=== PATIENT | male | born 1975 | race Caucasian/White ===

== ENCOUNTER 2017-02-14 15:54 | Observation (INO) | payer MEDICARE, OTHER ==
[2017-02-14] MEDS ORDERED: NITROGLYCERIN SL TABS 0.4 MG TAB SUBLINGUAL STA (16:14)
[2017-02-14] MEDS ORDERED: ASPIRIN 81 MG PO STA (16:14)
--- NOTE | 2017-02-14 16:17 | ED ---
General Adult HPI - General Chief complaint: Chest Pain Stated complaint: chest & abdominal pain/leg stiffness Time Seen by Provider: 02/14/17 16:03 Source: patient, RN notes reviewed Mode of arrival: ambulatory Limitations: no limitations - History of Present Illness Initial comments: Patient is a 41-year-old male who presents emergency room today with a chief complaint of chest pain that began approximately 2 hours ago. States he was just sitting relaxing when this started. He describes it as a sharp pain. It is worse with certain movements at times. Currently rates it a 9/10. States never had similar pain in the past. He denies any other associated symptoms or complaints. States he does not take any medications. Patient denies any recent fever, chills, shortness of breath, back pain, abdominal pain, nausea or vomiting, numbness or tingling, dysuria or hematuria, constipation or diarrhea, headaches or visual changes, or any other complaints. - Related Data Home Medications Medication Instructions Recorded Confirmed No Known Home Medications [No 02/14/17 02/14/17 Known Home Medications] Allergies Allergy/AdvReac Type Severity Reaction Status Date / Time No Known Allergies Allergy Verified 02/14/17 16:44 Review of Systems ROS Statement: Those systems with pertinent positive or pertinent negative responses have been documented in the HPI. ROS Other: All systems not noted in ROS Statement are negative. Past Medical History Past Medical History: Hypertension Additional Past Medical History / Comment(s): back pain History of Any Multi-Drug Resistant Organisms: None Reported Past Surgical History: No Surgical Hx Reported Past Psychological History: No Psychological Hx Reported Smoking Status: Never smoker Past Alcohol Use History: None Reported Past Drug Use History: None Reported General Exam - General Exam Comments Initial Comments: General: The patient is awake and alert, in no distress, and does not appear acutely ill. Eye: Pupils are equal, round and reactive to light, extra-ocular movements are intact. No nystagmus. There is normal conjunctiva bilaterally. No signs of icterus. Ears, nose, mouth and throat: There are moist mucous membranes and no oral lesions. Neck: The neck is supple, there is no tenderness or JVD. Cardiovascular: There is a regular rate and rhythm. No murmur, rub or gallop is appreciated. Respiratory: Lungs are clear to auscultation, respirations are non-labored, breath sounds are equal. No wheezes, stridor, rales, or rhonchi. Gastrointestinal: Soft, non-distended, non-tender abdomen without masses or organomegaly noted. There is no rebound or guarding present. No CVA tenderness. Bowel sounds are unremarkable. Musculoskeletal: Normal ROM, no tenderness. Strength 5/5. Sensation intact. Pulses equal bilaterally 2+. Neurological: A&O x 3. CN II-XII intact, There are no obvious motor or sensory deficits. Coordination appears grossly intact. Speech is normal. Skin: Skin is warm and dry and no rashes or lesions are noted. Psychiatric: Cooperative, appropriate mood & affect, normal judgment. Limitations: no limitations Course Vital Signs 02/14/17 02/14/17 02/14/17 15:58 16:51 16:58 Temperature 97.0 F L Pulse Rate 61 62 67 Respiratory 18 16 16 Rate Blood Pressure 138/75 138/81 126/69 O2 Sat by Pulse 99 97 97 Oximetry 02/14/17 17:58 Temperature Pulse Rate 58 L Respiratory 14 Rate Blood Pressure 114/73 O2 Sat by Pulse 99 Oximetry EKG Findings - EKG Comments: EKG Findings:: EKG performed at 1606: A 12-lead EKG was performed and interpreted by me as showing the following: Rate is 53, and rhythm is normal sinus. There are normal QRS complexes and normal R-wave progression. ST segments have no elevation or depression, and DC segments appear normal. Medical Decision Making - Medical Decision Making Case discussed in detail with attending physician Dr. Vega. Patient reexamined at this time shows no signs of distress resting comfortably. Patient mitts that on Nitro-Tab did relieve HIS pain. He is currently pain- free at this time. Denies any other symptoms. He does not that symptoms started 2 hours prior to arrival. Patient will be admitted for serial enzymes. Patient family aware of the plan. - Lab Data Result diagrams: 02/14/17 16:50 02/14/17 16:50 Lab Results 02/14/17 02/14/17 02/14/17 Range/Units 16:50 16:50 16:50 WBC 5.9 (3.8-10.6) k/uL RBC 5.13 (4.30-5.90) m/uL Hgb 16.1 (13.0-17.5) gm/dL Hct 45.2 (39.0-53.0) % MCV 88.1 (80.0-100.0) fL MCH 31.4 (25.0-35.0) pg MCHC 35.6 (31.0-37.0) g/dL RDW 12.5 (11.5-15.5) % Plt Count 202 (150-450) k/uL Neutrophils % 53 % Lymphocytes % 33 % Monocytes % 8 % Eosinophils % 3 % Basophils % 1 % Neutrophils # 3.2 (1.3-7.7) k/uL Lymphocytes # 2.0 (1.0-4.8) k/uL Monocytes # 0.5 (0-1.0) k/uL Eosinophils # 0.2 (0-0.7) k/uL Basophils # 0.0 (0-0.2) k/uL PT (9.0-12.0) sec INR (<1.2) APTT (22.0-30.0) sec Sodium 138 (137-145) mmol/L Potassium 4.8 (3.5-5.1) mmol/L Chloride 104 (98-107) mmol/L Carbon Dioxide 24 (22-30) mmol/L Anion Gap 10 mmol/L BUN 9 (9-20) mg/dL Creatinine 0.90 (0.66-1.25) mg/dL Est GFR (MDRD) Af Amer >60 (>60 ml/min/1.73 sqM) Est GFR (MDRD) Non-Af >60 (>60 ml/min/1.73 sqM) Glucose 94 (74-99) mg/dL Calcium 9.8 (8.4-10.2) mg/dL Magnesium 2.0 (1.6-2.3) mg/dL Total Bilirubin 1.0 (0.2-1.3) mg/dL AST 56 (17-59) U/L ALT 96 H (21-72) U/L Alkaline Phosphatase 77 (38-126) U/L Total Creatine Kinase 53 L (55-170) U/L CK-MB (CK-2) <0.2 (0.0-2.4) ng/mL CK-MB (CK-2) Rel Index Troponin I <0.012 (0.000-0.034) ng/mL Total Protein 7.4 (6.3-8.2) g/dL Albumin 4.4 (3.5-5.0) g/dL 02/14/17 Range/Units 16:50 WBC (3.8-10.6) k/uL RBC (4.30-5.90) m/uL Hgb (13.0-17.5) gm/dL Hct (39.0-53.0) % MCV (80.0-100.0) fL MCH (25.0-35.0) pg MCHC (31.0-37.0) g/dL RDW (11.5-15.5) % Plt Count (150-450) k/uL Neutrophils % % Lymphocytes % % Monocytes % % Eosinophils % % Basophils % % Neutrophils # (1.3-7.7) k/uL Lymphocytes # (1.0-4.8) k/uL Monocytes # (0-1.0) k/uL Eosinophils # (0-0.7) k/uL Basophils # (0-0.2) k/uL PT 10.7 (9.0-12.0) sec INR 1.1 (<1.2) APTT 23.4 (22.0-30.0) sec Sodium (137-145) mmol/L Potassium (3.5-5.1) mmol/L Chloride (98-107) mmol/L Carbon Dioxide (22-30) mmol/L Anion Gap mmol/L BUN (9-20) mg/dL Creatinine (0.66-1.25) mg/dL Est GFR (MDRD) Af Amer (>60 ml/min/1.73 sqM) Est GFR (MDRD) Non-Af (>60 ml/min/1.73 sqM) Glucose (74-99) mg/dL Calcium (8.4-10.2) mg/dL Magnesium (1.6-2.3) mg/dL Total Bilirubin (0.2-1.3) mg/dL AST (17-59) U/L ALT (21-72) U/L Alkaline Phosphatase (38-126) U/L Total Creatine Kinase (55-170) U/L CK-MB (CK-2) (0.0-2.4) ng/mL CK-MB (CK-2) Rel Index Troponin I (0.000-0.034) ng/mL Total Protein (6.3-8.2) g/dL Albumin (3.5-5.0) g/dL Disposition Clinical Impression: Chest pain Disposition: ADMITTED IP TO THIS HOSP Condition: Stable Referrals: None,Stated [Primary Care Provider] - 1-2 days Time of Disposition: 18:13
[2017-02-14 17:11] LABS: Basophils % (A) 1 %; CH 30.9; CHCM 35.2; Eosinophils # (A) 0.2 k/uL (0-0.7); Eosinophils % (A) 3 %; HCT 45.2 % (39.0-53.0); HDW 2.66; HGB 16.1 gm/dL (13.0-17.5); Luc # (Auto) 0.12; Luc % (Auto) 2; Lymphocytes % (A) 33 %; MCH 31.4 pg (25.0-35.0); MCHC 35.6 g/dL (31.0-37.0); MCV 88.1 fL (80.0-100.0); Mean Platelet Volume 7.8; Monocytes # (A) 0.5 k/uL (0-1.0); Monocytes % (A) 8 %; Neutrophils # (A) 3.2 k/uL (1.3-7.7); Neutrophils % (A) 53 %; RBC 5.13 m/uL (4.30-5.90); RDW 12.5 % (11.5-15.5); WBC 5.9 k/uL (3.8-10.6); WBC (Perox) 5.86
--- NOTE | 2017-02-14 17:15 | XR ---
EXAMINATION TYPE: XR chest 2V DATE OF EXAM: 02/14/2017 COMPARISON: 11/30/2015 HISTORY: Chest pain TECHNIQUE: Frontal and lateral views of the chest are obtained. FINDINGS: Heart and mediastinum are normal. Lungs are clear. Diaphragm is normal. Bony thorax is int act. There are chest leads. IMPRESSION: Normal chest. No change.
[2017-02-14 17:22] LABS: ALT 96 U/L (21-72); AST 56 U/L (17-59); Alkaline Phosphatase 77 U/L (38-126); Anion Gap 10 mmol/L; Blood Urea Nitrogen 9 mg/dL (9-20); Calcium 9.8 mg/dL (8.4-10.2); Carbon Dioxide 24 mmol/L (22-30); Chloride 104 mmol/L (98-107); Glucose 94 mg/dL (74-99); Non-African American GFR(MDRD) >60 (>60 ml/min/1.73 sqM); Potassium 4.8 mmol/L (3.5-5.1); Sodium 138 mmol/L (137-145); Total Protein 7.4 g/dL (6.3-8.2)
[2017-02-14 17:32] LABS: Creatine Kinase 53 U/L (55-170)
[2017-02-14 17:45] LABS: Creatine Kinase MB <0.2 ng/mL (0.0-2.4); Troponin I <0.012 ng/mL (0.000-0.034)
[2017-02-14 17:53] LABS: Partial Thromboplastin Time 23.4 sec (22.0-30.0)
[2017-02-14 18:06] LABS: INR 1.1 (<1.2); Prothrombin Time 10.7 sec (9.0-12.0)
[2017-02-14] MEDS ORDERED: HEPARIN SODIUM,PORCINE 5,000 UNIT/ML 1 ML VIAL IV ONE (18:13)
[2017-02-14] MEDS ORDERED: SODIUM CHLORIDE 0.9% 1,000 ML IV ONE (18:13)
[2017-02-14] MEDS ORDERED: NITROGLYCERIN SL TABS 0.4 MG TAB SUBLINGUAL PRN (18:13)
[2017-02-14] MEDS ORDERED: HEPARIN SODIUM,PORCINE/D5W PMX 25,000 UNIT in DEXTROSE/WATER 1 500ML.BAG IV SCH (18:15)
--- NOTE | 2017-02-14 18:53 | P.HPIM ---
History of Present Illness H&P Date: 02/14/17 Chief Complaint: chest pain Patient is a 41-year-old male with a past medical history of hypertension and back pain who presented with complaints of right-sided chest pain. He states that he ate some eggs and sausage this morning. A few hours later he started having right-sided stabbing chest pain that radiated to his left. It was not associated with shortness of breath, nausea, vomiting, lightheadedness, presyncope, palpitations, or diaphoresis. He states it lasted more than one hour. He states that it was relieved with nitro. He still is having some right and left shoulder pain that is worse with movement and better with rest. He did not try anything at home to relieve the pain prior to presenting to the emergency department. He denies any history of coronary artery disease. He states he had similar pain when he was told he had rib fractures approximately one year ago. He does have a family history of heart disease with his mom passing away of this at age 73. He has a history of hypertension but was taken off of his medications by his doctor his blood pressures had been normal. He denies any history of smoking and does not take a daily aspirin. He states that he had a stress test was approximately 6-7 years ago. He denies any unusual activities at home. In the emergency department he underwent an extensive evaluation. His vital signs are found to be within normal limits. Initial troponin and blood was negative. EKG showed sinus bradycardia at a rate of 53 with normal axis and normal intervals. He will be admitted as observation for her second set of troponins and cardiology evaluation. Review of Systems General: no fever/chills, no rigors, no weight loss/weight gain, no change in appetite Eyes: No double vision, no unusual blurry vision, no loss of vision ENT: No rhinorrhea, congestion, no trush Cardiovascular: + Chest pain, no palpitations, no syncope, no edema, No paroxysmal nocturnal dyspnea, No dizziness Pulmonary: No shortness of breath, no wheezing, no cough, hemoptysis Abdominal: No abdominal pain, no constipation, no diarrhea, no vomiting, no nausea, no distention Genitourinary: No dysuria, no urinary frequency, no hematuria, no unusual discharge/odor Neuro: No unusual paresthesias, no unusual paresis/paralysis, no headache Dermatologic: No unusual rashes, no unusual lesions, no unusual changes in nails Endocrinology: No intolerance to heat/cold, no excessive thirst, no unusual fatigue Hematologic: No unusual bruising or bleeding, no unusual cervical lymphadenopathy Psychiatric: No changes in mood or behaviors, no changes in sleep pattern Past Medical History Past Medical History: Hypertension Additional Past Medical History / Comment(s): back pain History of Any Multi-Drug Resistant Organisms: None Reported Past Surgical History: No Surgical Hx Reported Past Psychological History: No Psychological Hx Reported Smoking Status: Never smoker Past Alcohol Use History: None Reported Past Drug Use History: None Reported - Past Family History Mother Family Medical History: Coronary Artery Disease (CAD) Father Family Medical History: Diabetes Mellitus Medications and Allergies Home Medications Medication Instructions Recorded Confirmed Type No Known Home Medications [No 02/14/17 02/14/17 History Known Home Medications] Allergies Allergy/AdvReac Type Severity Reaction Status Date / Time No Known Allergies Allergy Verified 02/14/17 16:44 Physical Exam Osteopathic Statement: *. No significant issues noted on an osteopathic structural exam other than those noted in the History and Physical/Consult. Vitals: Vital Signs Temp Pulse Resp BP Pulse Ox 02/14/17 18:39 97.9 F 53 L 16 126/84 99 02/14/17 17:58 58 L 14 114/73 99 02/14/17 16:58 67 16 126/69 97 02/14/17 16:51 62 16 138/81 97 02/14/17 15:58 97.0 F L 61 18 138/75 99 Intake and Output 02/14/17 02/14/17 02/14/17 06:59 14:59 22:59 Other: Weight 81.647 kg Patient Weight 02/15/17 06:59 Weight 81.647 kg General: non toxic, no distress, appears at stated age, normal weight Derm: no rashes, no lesions, no ulcers, no unusual ecchymoses Head: atraumatic, normocephalic, symmetric Eyes: EOMI, no lid lag, anicteric sclera, pupils equal round reactive to light ENT: no post nasal drip, no thrush , nearest patent, no pharyngeal erythema Neck: No thyromegaly, no cervical lymphadenopathy, trachea midline, supple Mouth: no lip lesion, mucus membranes moist Cardiovascular: Chest pain not reproducible, S1S2 reg, no murmur, positive posterior tibial pulse bilateral, no edema , no JVD, no clubbing, no cyanosis, capillary refill less than 2 seconds Lungs: CTA bilateral, no rhonchi, no rales , no accessory muscle use Abdominal: soft, nontender to palpation, no guarding, no appreciable organomegaly, normal bowel sounds Ext: no gross muscle atrophy, muscle strength 5 out of 5 in all 4 extremities grossly, no contractures, Neuro: CN II-XI grossly intact, light touch intact all 4 extremities, finger to nose within normal limits, Psych: Alert, oriented, appropriate affect Results CBC & Chem 7: 02/14/17 16:50 02/14/17 16:50 Labs: Abnormal Lab Results - Last 24 Hours (Table) 02/14/17 02/14/17 Range/Units 16:50 16:50 ALT 96 H (21-72) U/L Total Creatine Kinase 53 L (55-170) U/L Chest x-ray: report reviewed, image reviewed Thrombosis Risk Factor Assmnt - DVT/VTE Prophylaxis DVT/VTE Prophylaxis: Low risk, early ambulation encouraged Assessment and Plan Plan: #Chest pain -Aspirin -Repeat second troponin -Telemetry -Cardiology consult -Continue her score is year-old patient can likely have an outpatient stress test next week if cardiology is in agreement. #Hypertension -Patient not currently on any antihypertensive treatment secondary to be taken off by his PCP, continue with blood pressure monitoring Surrogate decision-maker: Brothclaudy Polk CODE STATUS: Full DVT prophylaxis: Ambulation Discussed with: Patient, ER physician, ER nurse, Floor nurse Anticipated discharge: [address]: Home A total of 45 minutes was spent on the care of this complex patient more than 50 % of the time was spent in counseling and care coordination.
[2017-02-14 19:48] VITALS: BMI 24.2
[2017-02-14 23:27] LABS: Creatine Kinase 57 U/L (55-170)
[2017-02-14 23:41] LABS: Creatine Kinase MB <0.2 ng/mL (0.0-2.4); Troponin I <0.012 ng/mL (0.000-0.034)
[2017-02-15] MEDS ORDERED: ACETAMINOPHEN TAB 325 MG TAB PO PRN (03:58)
[2017-02-15 05:57] LABS: Cholesterol 206 mg/dL (<200); Creatine Kinase 60 U/L (55-170); HDL Cholesterol 49 mg/dL (40-60)
[2017-02-15 06:10] LABS: Creatine Kinase MB <0.2 ng/mL (0.0-2.4); Troponin I <0.012 ng/mL (0.000-0.034)
[2017-02-15 08:15] VITALS: BP 109/66; PULSE 52; RESP 15; TEMP 97.6
--- NOTE | 2017-02-15 08:36 | US ---
EXAMINATION TYPE: US liver DATE OF EXAM: 02/15/2017 COMPARISON: NONE CLINICAL HISTORY: RUQ pain, elevated liver enzymes. EXAM MEASUREMENTS: Liver Length: 16.1 cm Gallbladder Wall: 0.2 cm CBD: 0.5 cm Right Kidney: 12.1 x 3.8 x 5.0 cm Limited due to bowel gas and position of liver high under ribs. Pancreas: Obscured by bowel gas, parts visualized appear wnl Liver: Obscured by overlying bowel gas, parts visualized appear wnl Gallbladder: appear wnl Evidence for sonographic Madden's sign: No CBD: appears prominent Right Kidney: appear wnl The pancreas is poorly visualized. The liver is normal in size without biliary dilatation. The gallbladder is normal without evidence of cholelithiasis. The gallbladder wall measures 2 mm. The distal common hepatic duct measures 5 mm. The right kidney is normal. IMPRESSION: NORMAL RIGHT UPPER QUADRANT ULTRASOUND.
--- NOTE | 2017-02-15 08:48 | P.CRDCN ---
History of Present Illness Consult date: 02/15/17 Chief complaint: Chest pain History of present illness: This is a pleasant 41-year-old gentleman with past medical history significant for hypertension and significant family history of coronary artery disease presented to the hospital complaining of chest discomfort. He describes chest discomfort over the right side of the chest as a sharp kind of discomfort without any radiation to the arm or neck or shoulders and without any associated symptoms of shortness of breath, sweating, dizziness or lightheadedness or syncope. The cardiac workup came in to be unremarkable including EKG as well as cardiac enzymes. The chest x-ray came in to be unremarkable. He underwent also an ultrasound of the abdomen and that came in to be unremarkable as well. Past Medical History Past Medical History: Hypertension Additional Past Medical History / Comment(s): back pain History of Any Multi-Drug Resistant Organisms: None Reported Past Surgical History: No Surgical Hx Reported Past Anesthesia/Blood Transfusion Reactions: No Reported Reaction Past Psychological History: No Psychological Hx Reported Smoking Status: Never smoker Past Alcohol Use History: None Reported Past Drug Use History: None Reported - Past Family History Mother Family Medical History: Coronary Artery Disease (CAD) Father Family Medical History: Diabetes Mellitus Medications and Allergies Home Medications Medication Instructions Recorded Confirmed Type No Known Home Medications [No 02/14/17 02/14/17 History Known Home Medications] Allergies Allergy/AdvReac Type Severity Reaction Status Date / Time No Known Allergies Allergy Verified 02/14/17 19:48 Physical Exam Vitals: Vital Signs Temp Pulse Pulse Resp BP BP Pulse Ox 02/15/17 08:00 97.6 F 52 L 15 109/66 97 02/15/17 04:00 97.7 F 54 L 18 131/75 98 02/14/17 23:49 56 L 18 02/14/17 22:47 58 L 18 140/72 98 02/14/17 20:00 18 02/14/17 19:04 98.1 F 54 L 18 144/73 100 02/14/17 18:39 97.9 F 53 L 16 126/84 99 02/14/17 17:58 58 L 14 114/73 99 02/14/17 16:58 67 16 126/69 97 02/14/17 16:51 62 16 138/81 97 02/14/17 15:58 97.0 F L 61 18 138/75 99 Intake and Output 02/14/17 02/15/17 02/15/17 22:59 06:59 14:59 Intake Total 860 470 Balance 860 470 Intake: IV 80 160 Heparin Sodium,Porcine/ 80 160 D5w Pmx 25,000 unit In Dextrose/Water 1 500ml. bag @ 12 UNITS/KG/HR 19. 59 mls/hr IV .Q24H [facility] Rx #:[id number] Intake, IV Titration 80 160 Amount Sodium Chloride 0.9% 1, 80 160 000 ml @ 20 mls/hr IV . Q24H ONE Rx#:[id number] Oral 700 150 Other: Voiding Method Toilet Toilet Toilet # Voids 2 2 Weight 90.2 kg - Constitutional General appearance: no acute distress - Respiratory Respiratory: bilateral: CTA - Cardiovascular Rhythm: regular Heart sounds: normal: S1, S2 Results 02/14/17 16:50 02/14/17 16:50 Cardiac Enzymes 02/14/17 02/14/17 02/14/17 Range/Units 16:50 16:50 22:47 AST 56 (17-59) U/L CK-MB (CK-2) <0.2 <0.2 (0.0-2.4) ng/mL Troponin I <0.012 <0.012 (0.000-0.034) ng/mL 02/15/17 Range/Units 04:59 AST (17-59) U/L CK-MB (CK-2) <0.2 (0.0-2.4) ng/mL Troponin I <0.012 (0.000-0.034) ng/mL Coagulation 02/14/17 02/15/17 Range/Units 16:50 04:59 PT 10.7 (9.0-12.0) sec APTT 23.4 32.3 H (22.0-30.0) sec Lipids 02/15/17 Range/Units 04:59 Triglycerides 121 (<150) mg/dL Cholesterol 206 H (<200) mg/dL HDL Cholesterol 49 (40-60) mg/dL CBC 02/14/17 Range/Units 16:50 WBC 5.9 (3.8-10.6) k/uL RBC 5.13 (4.30-5.90) m/uL Hgb 16.1 (13.0-17.5) gm/dL Hct 45.2 (39.0-53.0) % Plt Count 202 (150-450) k/uL Comprehensive Metabolic Panel 02/14/17 Range/Units 16:50 Sodium 138 (137-145) mmol/L Potassium 4.8 (3.5-5.1) mmol/L Chloride 104 (98-107) mmol/L Carbon Dioxide 24 (22-30) mmol/L BUN 9 (9-20) mg/dL Creatinine 0.90 (0.66-1.25) mg/dL Glucose 94 (74-99) mg/dL Calcium 9.8 (8.4-10.2) mg/dL AST 56 (17-59) U/L ALT 96 H (21-72) U/L Alkaline Phosphatase 77 (38-126) U/L Total Protein 7.4 (6.3-8.2) g/dL Albumin 4.4 (3.5-5.0) g/dL Current Medications Generic Name Dose Route Start Last Admin Trade Name Freq PRN Reason Stop Dose Admin Acetaminophen 650 mg 02/15/17 03:58 02/15/17 04:21 Tylenol Tab PO 650 mg Q6HR PRN Administration Fever and/ or Pain Aspirin 325 mg 02/15/17 09:00 Aspirin PO DAILY [facility] Sodium Chloride 1,000 mls @ 20 mls/hr 02/14/17 18:13 02/14/17 18:33 Saline 0.9% IV 02/15/17 18:12 20 mls/hr .Q24H ONE Administration Nitroglycerin 0.4 mg 02/14/17 18:13 Nitrostat SUBLINGUAL Q5M PRN Chest Pain Intake and Output 02/14/17 02/15/17 02/15/17 22:59 06:59 14:59 Intake Total 860 470 Balance 860 470 Intake: IV 80 160 Heparin Sodium,Porcine/ 80 160 D5w Pmx 25,000 unit In Dextrose/Water 1 500ml. bag @ 12 UNITS/KG/HR 19. 59 mls/hr IV .Q24H [facility] Rx #:[id number] Intake, IV Titration 80 160 Amount Sodium Chloride 0.9% 1, 80 160 000 ml @ 20 mls/hr IV . Q24H ONE Rx#:[id number] Oral 700 150 Other: Voiding Method Toilet Toilet Toilet # Voids 2 2 Weight 90.2 kg 02/14/17 16:50 02/14/17 16:50 Assessment and Plan Plan: This is a pleasant 41-year-old gentleman with hypertension and family history of CAD presented to the hospital was atypical chest discomfort and was ruled out for acute coronary event. I had a long discussion with him and I recommended proceeding with a stress test. Unfortunately we don't to stress test over the weekend. I recommended the patient to get up and around and if he is asymptomatic and pain-free he might be able to be discharged home and have the stress test done as an outpatient.
[2017-02-15] MEDS ORDERED: ASPIRIN 325 MG TAB PO SCH (09:00)
--- NOTE | 2017-02-15 10:30 | P.DS ---
Providers Date of admission: 02/14/17 18:12 Expected date of discharge: 02/15/17 Attending physician: Diane Vargas DO Consults: 02/14/17 18:13 Consult Physician Stat Consulting Provider: [facility] Consult Reason/Comments: chest pain Do you want consulting provider notified?: Yes Primary care physician: Stated None - Discharge Diagnosis(es) (1) Dyslipidemia Status: Acute (2) Hypertension Status: Acute (3) Chest pain Status: Acute Hospital Course: Patient is a 41-year-old male with a past medical history of hypertension and back pain who presented with complaints of right-sided chest pain. Pain began after eating meals aches sausage. It was worse with lying flat and moving his right shoulder. In the emergency department he underwent an extensive evaluation. His vital signs were found to be within normal limits. Initial troponin and blood was negative. EKG showed sinus bradycardia at a rate of 53 with normal axis and normal intervals. He was admitted as observation for further monitoring. His repeat troponins were negative. His telemetry was unremarkable. Evaluation did show elevated cholesterol levels. He was seen by cardiology and was determined appropriate for outpatient stress test. He was not having any chest pain when up and ambulating but was having some pain with movement of his right shoulder. He was determined stable for discharge. He also had an abdominal ultrasound completed during his hospitalization to rule out gallstones. He assures me that he will follow up with his primary care provider next week. His chest pain was felt to most likely musculoskeletal versus GERD related. He was started on a PPI daily. He will take Motrin 3 times a day for the next 3 days to see if that relieves his pain. He will follow-up with his primary care physician. He is also started on statin therapy secondary to dyslipidemia. He does have a history of hypertension but was taken off of his medications. His blood pressures remained controlled during hospitalization and there was no indication to restart antihypertensive therapy. Patient seen and examined at bedside. Has right-sided chest pain when laying flat and moving right arm. Was able to ambulate without shortness of breath or chest pain. No other complaints at this time. Wishes to be discharged home for outpatient stress test. He understands the importance of receiving this stress test with his family history of heart disease Vital signs reviewed and stable. General: non toxic, no distress, appears at stated age Derm: no rashes, no lesions Head: atraumatic, normocephalic, symmetric Eyes: EOMI, no lid lag, anicteric sclera ENT: no post nasal drip, no thrush Mouth: no lip lesion, mucus membranes moist Cardiovascular: S1S2 reg, no murmur, positive posterior tibial pulse bilateral, Lungs: CTA bilateral, no rhonchi, no rales , no accessory muscle use Abdominal: soft, nontender to palpation, no guarding, no appreciable organomegaly Ext: no gross muscle atrophy, no edema, no contractures Neuro: CN II-XI grossly intact, no focal neuro deficits Psych: Alert, oriented, appropriate affect A total of 25 minutes of time were spent preparing this complex discharge summary . Pertinent Studies: Liver ultrasound-negative Patient Condition at Discharge: Stable Plan - Discharge Summary New Discharge Prescriptions: New Atorvastatin [Lipitor] 40 mg PO HS #30 tablet Dexlansoprazole [Dexilant] 30 mg PO DAILY #30 cap. Discharge Medication List Atorvastatin [Lipitor] 40 mg PO HS #30 tablet 02/15/17 [Rx] Dexlansoprazole [Dexilant] 30 mg PO DAILY #30 cap. 02/15/17 [Rx] Follow up Appointment(s)/Referral(s): Jos éMiguel Vega MD [STAFF PHYSICIAN] - 2 Weeks None,Stated [Primary Care Provider] - 1-2 days Activity/Diet/Wound Care/Special Instructions: Heart healthy diet, activity as tolerated Please take your Mortin 3 times daily for the next 3 days and then as needed after that. You are also going home with a trial of a medication for heart burn. Please follow-up with your family doctor to see if this is effective for your pain. Discharge Disposition: HOME SELF-CARE
== END 2017-02-15 11:12 | disposition home or self-care (01) ==
LOC: EC 15:54 → 3OBS 18:12
PROVIDERS: ADMIT Internal Medicine; ATTEND Internal Medicine
DX: R07.89 Other chest pain (principal); R10.9 Unspecified abdominal pain; I10 Essential (primary) hypertension; R00.1 Bradycardia, unspecified; M54.9 Dorsalgia, unspecified; E78.5 Hyperlipidemia, unspecified; Z82.49 Family history of ischemic heart disease and other diseases of the circulatory system
CPT/HCPCS: 96374; 99285; 36415; 93005; 80061; 80053; 82550 ×2; 82553 ×2; 83735; 84484 ×2; 85025; 85610; 85730 ×2; 71020; 76705; G0378 ×2; J1644 ×2

== ENCOUNTER 2017-06-27 14:01 | Emergency (ER) | payer MEDICARE, OTHER ==
--- NOTE | 2017-06-27 14:23 | ED ---
General Adult HPI - General Chief complaint: Abdominal Pain Stated complaint: Abd pain Time Seen by Provider: 06/27/17 14:17 Source: patient, RN notes reviewed Mode of arrival: ambulatory Limitations: no limitations - History of Present Illness Initial comments: Patient 42-year-old male who presents emergency room today with chief complaint of lower abdominal pain over the last 5 days. He does admit to some discomfort to the lower abdomen. He states that it's been present for 5 days on family doctor yesterday was advised to come to the emergency room. Patient does admit that he felt a little constipated this morning having a difficult time going the bathroom. Patient does admit that pain is improved when he is sitting up or swelling is laying flat. Patient denies anything which associated symptoms. Patient denies any recent fever, chills, shortness of breath, chest pain, back pain, nausea or vomiting, numbness or tingling, dysuria or hematuria, diarrhea, headaches or visual changes, or any other complaints. - Related Data Home Medications Medication Instructions Recorded Confirmed No Known Home Medications [No 06/27/17 06/27/17 Known Home Medications] Allergies Allergy/AdvReac Type Severity Reaction Status Date / Time No Known Allergies Allergy Verified 06/27/17 14:19 Review of Systems ROS Statement: Those systems with pertinent positive or pertinent negative responses have been documented in the HPI. ROS Other: All systems not noted in ROS Statement are negative. Past Medical History Past Medical History: Hypertension Additional Past Medical History / Comment(s): back pain History of Any Multi-Drug Resistant Organisms: None Reported Past Surgical History: No Surgical Hx Reported Past Anesthesia/Blood Transfusion Reactions: No Reported Reaction Past Psychological History: No Psychological Hx Reported Smoking Status: Never smoker Past Alcohol Use History: None Reported Past Drug Use History: None Reported - Past Family History Mother Family Medical History: Coronary Artery Disease (CAD) Father Family Medical History: Diabetes Mellitus General Exam - General Exam Comments Initial Comments: General: The patient is awake and alert, in no distress, and does not appear acutely ill. Eye: Pupils are equal, round and reactive to light, extra-ocular movements are intact. No nystagmus. There is normal conjunctiva bilaterally. No signs of icterus. Ears, nose, mouth and throat: There are moist mucous membranes and no oral lesions. Neck: The neck is supple, there is no tenderness or JVD. Cardiovascular: There is a regular rate and rhythm. No murmur, rub or gallop is appreciated. Respiratory: Lungs are clear to auscultation, respirations are non-labored, breath sounds are equal. No wheezes, stridor, rales, or rhonchi. Gastrointestinal: Normal. His abdomen. Normal bowel sounds. Abdomen soft on palpation. Patient does have mild tenderness both on the left and right lower quadrants. No rebound, or guarding. No CVA tenderness. Musculoskeletal: Normal ROM, no tenderness. Strength 5/5. Sensation intact. Pulses equal bilaterally 2+. Neurological: A&O x 3. CN II-XII intact, There are no obvious motor or sensory deficits. Coordination appears grossly intact. Speech is normal. Skin: Skin is warm and dry and no rashes or lesions are noted. Psychiatric: Cooperative, appropriate mood & affect, normal judgment. Limitations: no limitations Course Vital Signs 06/27/17 14:04 Temperature 97 F L Pulse Rate 61 Respiratory 15 Rate Blood Pressure 129/85 O2 Sat by Pulse 98 Oximetry Medical Decision Making - Medical Decision Making Patient's labs reviewed negative for any acute abnormality. Patient's CT shows moderate stool. No sign of obstruction. No other sign of inflammation or infection. Results were discussed with patient. Patient will given magnesium citrate here in the emergency room. Patient advised to increase oral fluids following up with family doctor return to emergency room symptoms increase or worsen. - Lab Data Result diagrams: 06/27/17 14:35 06/27/17 14:35 Lab Results 06/27/17 06/27/17 06/27/17 Range/Units 14:35 14:35 14:35 WBC 6.5 (3.8-10.6) k/uL RBC 5.43 (4.30-5.90) m/uL Hgb 16.7 (13.0-17.5) gm/dL Hct 48.5 (39.0-53.0) % MCV 89.4 (80.0-100.0) fL MCH 30.8 (25.0-35.0) pg MCHC 34.4 (31.0-37.0) g/dL RDW 14.0 (11.5-15.5) % Plt Count 209 (150-450) k/uL Neutrophils % 59 % Lymphocytes % 32 % Monocytes % 5 % Eosinophils % 3 % Basophils % 1 % Neutrophils # 3.8 (1.3-7.7) k/uL Lymphocytes # 2.0 (1.0-4.8) k/uL Monocytes # 0.3 (0-1.0) k/uL Eosinophils # 0.2 (0-0.7) k/uL Basophils # 0.0 (0-0.2) k/uL Sodium 141 (137-145) mmol/L Potassium 4.2 (3.5-5.1) mmol/L Chloride 104 (98-107) mmol/L Carbon Dioxide 26 (22-30) mmol/L Anion Gap 11 mmol/L BUN 10 (9-20) mg/dL Creatinine 0.90 (0.66-1.25) mg/dL Est GFR (MDRD) Af Amer >60 (>60 ml/min/1.73 sqM) Est GFR (MDRD) Non-Af >60 (>60 ml/min/1.73 sqM) Glucose 94 (74-99) mg/dL Calcium 9.3 (8.4-10.2) mg/dL Total Bilirubin 0.8 (0.2-1.3) mg/dL AST 30 (17-59) U/L ALT 45 (21-72) U/L Alkaline Phosphatase 67 (38-126) U/L Total Protein 6.7 (6.3-8.2) g/dL Albumin 4.0 (3.5-5.0) g/dL Amylase 36 (30-110) U/L Lipase 80 (23-300) U/L Urine Color Light Yellow Urine Appearance Clear (Clear) Urine pH 7.0 (5.0-8.0) Ur Specific [place] 1.003 (1.001-1.035) Urine Protein Negative (Negative) Urine Glucose (UA) Negative (Negative) Urine Ketones Negative (Negative) Urine Blood Negative (Negative) Urine Nitrite Negative (Negative) Urine Bilirubin Negative (Negative) Urine Urobilinogen <2.0 (<2.0) mg/dL Ur Leukocyte Esterase Negative (Negative) Disposition Clinical Impression: Abdominal pain Disposition: HOME SELF-CARE Instructions: Abdominal Pain (ED) Additional Instructions: Please use magnesium citrate in the entire bottle with a large glass of water when you get home. Please follow-up the family doctor over the next 2 days if symptoms are not improving or return here to the emergency room if any symptoms increase or worsen or for any other concerns. Referrals: Keith Mata MD [Primary Care Provider] - 1-2 days Time of Disposition: 17:33
[2017-06-27 14:54] LABS: Basophils % (A) 1 %; Eosinophils # (A) 0.2 k/uL (0-0.7); Eosinophils % (A) 3 %; HCT 48.5 % (39.0-53.0); HGB 16.7 gm/dL (13.0-17.5); Lymphocytes % (A) 32 %; MCH 30.8 pg (25.0-35.0); MCHC 34.4 g/dL (31.0-37.0); MCV 89.4 fL (80.0-100.0); Mean Platelet Volume 7.9; Monocytes # (A) 0.3 k/uL (0-1.0); Monocytes % (A) 5 %; Neutrophils # (A) 3.8 k/uL (1.3-7.7); Neutrophils % (A) 59 %; Platelet Count 209 k/uL (150-450); RBC 5.43 m/uL (4.30-5.90); WBC 6.5 k/uL (3.8-10.6)
[2017-06-27 14:57] LABS: Appearance,Urine Clear (Clear); Bilirubin,Urine Negative (Negative); Blood,Urine Negative (Negative); Color,Urine Light Yellow; Glucose,Urine (UA) Negative (Negative); Ketones,Urine Negative (Negative); Leukocyte Esterase,Urine Negative (Negative); Nitrite,Urine Negative (Negative); Protein,Urine Negative (Negative); Specific Gravity,Urine 1.003 (1.001-1.035); Urobilinogen,Urine <2.0 mg/dL (<2.0)
[2017-06-27 15:05] LABS: ALT 45 U/L (21-72); AST 30 U/L (17-59); Alkaline Phosphatase 67 U/L (38-126); Amylase 36 U/L (30-110); Anion Gap 11 mmol/L; Blood Urea Nitrogen 10 mg/dL (9-20); Calcium 9.3 mg/dL (8.4-10.2); Carbon Dioxide 26 mmol/L (22-30); Chloride 104 mmol/L (98-107); Glucose 94 mg/dL (74-99); Lipase 80 U/L (23-300); Potassium 4.2 mmol/L (3.5-5.1); Sodium 141 mmol/L (137-145); Total Bilirubin 0.8 mg/dL (0.2-1.3); Total Protein 6.7 g/dL (6.3-8.2)
[2017-06-27] MEDS ORDERED: RX INFO: IV CONTRAST WAS GIVEN 1 EACH MISC MISCELLANE PRN (15:20)
--- NOTE | 2017-06-27 16:41 | CT ---
EXAMINATION TYPE: CT abdomen pelvis w con DATE OF EXAM: 06/27/2017 COMPARISON: NONE HISTORY: Generalized abdominal pain with constipation. CT DLP: 714.6 mGycm Automated exposure control for dose reduction was used. TECHNIQUE: Helical acquisition of images from the lung bases through the pelvis have been completed. CONTRAST: Performed without Oral Contrast and with IV Contrast, patient injected with 100 mL of Omnipaque 300. FINDINGS: Posterior diaphragmatic hernia contains fat on the right. Suspect a hiatal hernia may be pr esent. LUNG BASES: No significant abnormality is appreciated. AORTA: No significant abnormality is appreciated. LIVER/GB: No significant abnormality is appreciated. PANCREAS: No significant abnormality is seen. SPLEEN: No significant abnormality is seen. ADRENALS: No significant abnormality is seen. KIDNEYS: No significant abnormality is seen. REPRODUCTIVE ORGANS: No significant abnormality is seen BOWEL: Retained fecal debris present throughout the distribution of the colon, the appendix is clark l. No evident bowel obstruction. FREE AIR: No Free Air visible. ASCITES: None visible. PELVIC ADENOPATHY: None visualized. RETROPERITONEAL ADENOPATHY: No Retroperitoneal Adenopathy visible. URINARY BLADDER: No significant abnormality is seen. OSSEOUS STRUCTURES: No significant abnormality is seen. IMPRESSION: RETAINED FECAL DEBRIS, CORRELATE TO EXCLUDE FECAL STASIS. Additional findings above.
[2017-06-27] MEDS ORDERED: MAGNESIUM CITRATE 296 ML BOTTLE PO ONE (17:33)
[2017-06-27 17:44] VITALS: BP 134/72; PULSE 63; RESP 18; TEMP 98
== END 2017-06-27 18:13 | disposition home or self-care (01) ==
LOC: EC 14:01
DX: R10.31 Right lower quadrant pain (principal); R10.32 Left lower quadrant pain
CPT/HCPCS: 36415; 80053; 82150; 83690; 85025; 81003; 74177; 99284; Q9967

== ENCOUNTER 2018-02-17 13:09 | Emergency (ER) | payer MEDICARE, OTHER ==
[2018-02-17] MEDS ORDERED: SODIUM CHLORIDE 0.9% 1,000 ML IV STA (13:50)
[2018-02-17] MEDS ORDERED: KETOROLAC 30 MG/ML 1 ML VIAL IVP STA (13:50)
--- NOTE | 2018-02-17 13:53 | ED ---
Abdominal Pain HPI - General Chief Complaint: Abdominal Pain Stated Complaint: rt abdominal/rib pain, knee and ankle pain Time Seen by Provider: 02/17/18 13:31 Source: patient Mode of arrival: ambulatory Limitations: no limitations - History of Present Illness Initial Comments: 42-year-old male patient presents to the emergency department today for evaluation of right upper quadrant abdominal pain. Patient states that the pain has been present for the last couple of days. He states that the pain is sharp and constant. Patient denies history of similar symptoms. Denies any nausea or vomiting with this. Denies any constipation or diarrhea. He denies any fever, chills, or difficulty with urination. States that the pain does not change of the third drinks. Has never had surgery on his abdomen. His any radiation of the pain to his back or shoulder. Patient denies any recent rash, shortness breath, chest pain, numbness, tingling, dizziness, weakness, hematuria , dysuria, urinary urgency, urinary frequency, headache, visual changes, or any other complaints. - Related Data Home Medications Medication Instructions Recorded Confirmed No Known Home Medications 06/27/17 02/17/18 Allergies Allergy/AdvReac Type Severity Reaction Status Date / Time No Known Allergies Allergy Verified 02/17/18 14:30 Review of Systems ROS Statement: Those systems with pertinent positive or pertinent negative responses have been documented in the HPI. ROS Other: All systems not noted in ROS Statement are negative. Past Medical History Past Medical History: Hypertension Additional Past Medical History / Comment(s): back pain History of Any Multi-Drug Resistant Organisms: None Reported Past Surgical History: No Surgical Hx Reported Past Anesthesia/Blood Transfusion Reactions: No Reported Reaction Past Psychological History: No Psychological Hx Reported Smoking Status: Never smoker Past Alcohol Use History: None Reported Past Drug Use History: None Reported - Past Family History Mother Family Medical History: Coronary Artery Disease (CAD) Father Family Medical History: Diabetes Mellitus General Exam Limitations: no limitations General appearance: alert, in no apparent distress, other (This is a well- developed, well-nourished adult male patient in no acute distress. Vital signs upon presentation are temperature 98.4F, pulse 68, respirations 16, blood pressure 131/89, pulse ox 97% on room air.) Eye exam: Present: normal appearance, PERRL, EOMI. Absent: scleral icterus, conjunctival injection, periorbital swelling ENT exam: Present: normal exam, normal oropharynx, mucous membranes moist Respiratory exam: Present: normal lung sounds bilaterally. Absent: respiratory distress, wheezes, rales, rhonchi, stridor Cardiovascular Exam: Present: regular rate, normal rhythm, normal heart sounds. Absent: systolic murmur, diastolic murmur, rubs, gallop, clicks GI/Abdominal exam: Present: soft, tenderness (Right upper quadrant tenderness. Negative Madden's sign.), normal bowel sounds. Absent: distended, guarding, rebound, rigid Neurological exam: Present: alert, oriented X3, CN II-XII intact Psychiatric exam: Present: normal affect, normal mood Skin exam: Present: warm, dry, intact, normal color. Absent: rash Course Vital Signs 02/17/18 02/17/18 13:14 15:26 Temperature 98.4 F 97.4 F L Pulse Rate 68 60 Respiratory 16 18 Rate Blood Pressure 131/89 131/71 O2 Sat by Pulse 97 98 Oximetry Medical Decision Making - Medical Decision Making 42-year-old male patient presents to the emergency department today for evaluation of right upper quadrant abdominal pain. Physical examination was relatively unremarkable. Abdomen was soft and nontender. Labs reviewed and are unremarkable. KUB x-ray did show some mild constipation. He is instructed to follow up with his primary care physician for further evaluation. Return parameters discussed in detail. He verbalizes understanding and agrees with this plan for - Lab Data Result diagrams: 02/17/18 13:43 02/17/18 13:43 Lab Results 02/17/18 02/17/18 02/17/18 Range/Units 13:43 13:43 14:30 WBC 5.9 (3.8-10.6) k/uL RBC 5.25 (4.30-5.90) m/uL Hgb 16.0 (13.0-17.5) gm/dL Hct 46.1 (39.0-53.0) % MCV 87.9 (80.0-100.0) fL MCH 30.5 (25.0-35.0) pg MCHC 34.7 (31.0-37.0) g/dL RDW 12.5 (11.5-15.5) % Plt Count 212 (150-450) k/uL Neutrophils % 54 % Lymphocytes % 35 % Monocytes % 6 % Eosinophils % 4 % Basophils % 1 % Neutrophils # 3.2 (1.3-7.7) k/uL Lymphocytes # 2.1 (1.0-4.8) k/uL Monocytes # 0.4 (0-1.0) k/uL Eosinophils # 0.2 (0-0.7) k/uL Basophils # 0.0 (0-0.2) k/uL Sodium 140 (137-145) mmol/L Potassium 4.3 (3.5-5.1) mmol/L Chloride 103 (98-107) mmol/L Carbon Dioxide 27 (22-30) mmol/L Anion Gap 10 mmol/L BUN 8 L (9-20) mg/dL Creatinine 0.94 (0.66-1.25) mg/dL Est GFR (CKD-EPI)AfAm >90 (>60 ml/min/1.73 sqM) Est GFR (CKD-EPI)NonAf >90 (>60 ml/min/1.73 sqM) Glucose 97 (74-99) mg/dL Calcium 9.7 (8.4-10.2) mg/dL Total Bilirubin 1.4 H (0.2-1.3) mg/dL AST 34 (17-59) U/L ALT 40 (21-72) U/L Alkaline Phosphatase 71 (38-126) U/L Total Protein 7.8 (6.3-8.2) g/dL Albumin 4.6 (3.5-5.0) g/dL Amylase 46 (30-110) U/L Lipase 66 (23-300) U/L Urine Color Light Yellow Urine Appearance Clear (Clear) Urine pH 6.5 (5.0-8.0) Ur Specific [place] 1.007 (1.001-1.035) Urine Protein Negative (Negative) Urine Glucose (UA) Negative (Negative) Urine Ketones Negative (Negative) Urine Blood Negative (Negative) Urine Nitrite Negative (Negative) Urine Bilirubin Negative (Negative) Urine Urobilinogen <2.0 (<2.0) mg/dL Ur Leukocyte Esterase Large H (Negative) Urine RBC 4 (0-5) /hpf Urine WBC 10 H (0-5) /hpf Urine Mucus Rare H (None) /hpf Disposition Clinical Impression: Abdominal pain Disposition: HOME SELF-CARE Condition: Good Instructions: Constipation (ED), Abdominal Pain (ED) Additional Instructions: Increase fluids. Increase fruits and vegetables in the diet. Take medication as directed. Follow-up with your primary care physician for recheck in 1-2 days. Return here immediately for any new, worsening, or concerning symptoms. Is patient prescribed a controlled substance at d/c from ED?: No Referrals: Dina Herron MD [STAFF PHYSICIAN] - 1-2 days Time of Disposition: 15:08
[2018-02-17 14:11] LABS: Basophils % (A) 1 %; Eosinophils # (A) 0.2 k/uL (0-0.7); Eosinophils % (A) 4 %; HCT 46.1 % (39.0-53.0); Lymphocytes # (A) 2.1 k/uL (1.0-4.8); Lymphocytes % (A) 35 %; MCH 30.5 pg (25.0-35.0); MCHC 34.7 g/dL (31.0-37.0); MCV 87.9 fL (80.0-100.0); Mean Platelet Volume 7.4; Monocytes # (A) 0.4 k/uL (0-1.0); Monocytes % (A) 6 %; Neutrophils # (A) 3.2 k/uL (1.3-7.7); Neutrophils % (A) 54 %; Platelet Count 212 k/uL (150-450); RBC 5.25 m/uL (4.30-5.90); RDW 12.5 % (11.5-15.5); WBC 5.9 k/uL (3.8-10.6)
[2018-02-17 14:20] LABS: ALT 40 U/L (21-72); AST 34 U/L (17-59); Albumin 4.6 g/dL (3.5-5.0); Alkaline Phosphatase 71 U/L (38-126); Amylase 46 U/L (30-110); Anion Gap 10 mmol/L; Blood Urea Nitrogen 8 mg/dL (9-20); Calcium 9.7 mg/dL (8.4-10.2); Carbon Dioxide 27 mmol/L (22-30); Chloride 103 mmol/L (98-107); Glucose 97 mg/dL (74-99); Lipase 66 U/L (23-300); Potassium 4.3 mmol/L (3.5-5.1); Sodium 140 mmol/L (137-145); Total Bilirubin 1.4 mg/dL (0.2-1.3); Total Protein 7.8 g/dL (6.3-8.2)
--- NOTE | 2018-02-17 14:38 | XR ---
EXAMINATION TYPE: XR KUB DATE OF EXAM: 02/17/2018 COMPARISON: NONE HISTORY: Pain TECHNIQUE: One view abdominal series FINDINGS: The osseous structures are intact. The bowel gas pattern is nonspecific. Retained fecal debris throu ghout the colon. Lung bases are clear. IMPRESSION: 1. Nonspecific abdomen.
[2018-02-17 14:52] LABS: Appearance,Urine Clear (Clear); Bilirubin,Urine Negative (Negative); Blood,Urine Negative (Negative); Color,Urine Light Yellow; Glucose,Urine (UA) Negative (Negative); Ketones,Urine Negative (Negative); Leukocyte Esterase,Urine Large (Negative); Mucus,Urine Rare /hpf; Nitrite,Urine Negative (Negative); PH, Urine 6.5 (5.0-8.0); Protein,Urine Negative (Negative); RBC,Urine 4 /hpf (0-5); Specific Gravity,Urine 1.007 (1.001-1.035); Urobilinogen,Urine <2.0 mg/dL (<2.0); WBC,Urine 10 /hpf (0-5)
[2018-02-17] MEDS ORDERED: MAGNESIUM CITRATE 296 ML BOTTLE PO ONE (15:08)
[2018-02-17 15:27] VITALS: BP 131/71; PULSE 60; RESP 18; TEMP 97.4
== END 2018-02-17 15:27 | disposition home or self-care (01) ==
LOC: EC 13:09
DX: R10.11 Right upper quadrant pain (principal); K59.00 Constipation, unspecified
CPT/HCPCS: 36415; 80053; 82150; 83690; 85025; 81001; 87491; 87591; 87086; 74018; 99284; 96374; 96361; J1885

== ENCOUNTER → 2018-05-13 | Outpatient (CLI) | payer MEDICARE, OTHER ==
--- NOTE | 2018-05-14 11:15 | XR ---
Bilateral knees HISTORY: Pain, trauma 3 views of the left and 3 views of the right knee submitted on total of 6 images. Bone mineralization, joint spaces and alignment are maintained. No definite effusion. IMPRESSION: No fracture or dislocation in either knee.
== END | disposition home or self-care (01) ==
LOC: RADXRMAIN 20:53
PROVIDERS: ATTEND Legal Medicine
DX: M25.561 Pain in right knee (principal); M25.562 Pain in left knee

== ENCOUNTER 2018-09-28 22:43 | Emergency (ER) | payer MEDICARE, OTHER ==
[2018-09-28] MEDS ORDERED: KETOROLAC 30 MG/ML 1 ML VIAL IM STA (23:05)
[2018-09-28] MEDS ORDERED: methylPREDNISolone SOD SUCCI 125 MG/2 ML VIAL IM ONE (23:06)
--- NOTE | 2018-09-28 23:37 | XR ---
EXAM: XR Lumbar Spine, 2 or 3 Views CLINICAL HISTORY: Pain TECHNIQUE: Frontal and lateral views of the lumbar spine. COMPARISON: No relevant prior studies available. FINDINGS: Vertebrae: Unremarkable. No acute fracture. Normal alignment. Disc spaces: No acute findings. No significant narrowing. Soft tissues: Unremarkable. IMPRESSION: Normal lumbar spine x-rays.
--- NOTE | 2018-09-29 00:22 | ED ---
General Adult HPI - General Chief complaint: Back Pain/Injury Stated complaint: Back Pain/ Injury Time Seen by Provider: 09/28/18 23:02 Source: patient, RN notes reviewed Mode of arrival: ambulatory Limitations: no limitations - History of Present Illness Initial comments: 43-year-old male presents to the emergency determine for chief complaint of low back pain times one day. Patient states earlier today he was trying to lift a riding lawnmower with another man who is short of that him. Patient states he was lifting most of the weight and feels like he strained his back. Patient states he has had cramping spasming back pain in the lower back since that time. States it is painful to flex his back. Denies saddle anesthesia or bladder or bowel changes. Denies any weakness of the legs. Denies any fevers. Patient has no other complaints at this time including shortness of breath, chest pain, abdominal pain, nausea or vomiting, headache, or visual changes. - Related Data Previous Rx's Medication Instructions Recorded Cyclobenzaprine [Flexeril] 10 mg PO TID #10 tab 09/29/18 Ibuprofen [Motrin] 600 mg PO Q8HR PRN #20 tab 09/29/18 Allergies Allergy/AdvReac Type Severity Reaction Status Date / Time No Known Allergies Allergy Verified 09/28/18 23:22 Review of Systems ROS Statement: Those systems with pertinent positive or pertinent negative responses have been documented in the HPI. ROS Other: All systems not noted in ROS Statement are negative. Past Medical History Past Medical History: Hypertension Additional Past Medical History / Comment(s): back pain History of Any Multi-Drug Resistant Organisms: None Reported Past Surgical History: No Surgical Hx Reported Past Anesthesia/Blood Transfusion Reactions: No Reported Reaction Past Psychological History: No Psychological Hx Reported Smoking Status: Never smoker Past Alcohol Use History: None Reported Past Drug Use History: None Reported - Past Family History Mother Family Medical History: Coronary Artery Disease (CAD) Father Family Medical History: Diabetes Mellitus General Exam Limitations: no limitations General appearance: alert, in no apparent distress Head exam: Present: atraumatic, normocephalic, normal inspection Eye exam: Present: normal appearance, PERRL, EOMI. Absent: scleral icterus, conjunctival injection, periorbital swelling ENT exam: Present: normal exam, mucous membranes moist Neck exam: Present: normal inspection, full ROM. Absent: tenderness, meningismus, lymphadenopathy Respiratory exam: Present: normal lung sounds bilaterally. Absent: respiratory distress, wheezes, rales, rhonchi, stridor Cardiovascular Exam: Present: regular rate, normal rhythm, normal heart sounds. Absent: systolic murmur, diastolic murmur, rubs, gallop, clicks GI/Abdominal exam: Present: soft, normal bowel sounds. Absent: distended, tenderness, guarding, rebound, rigid Extremities exam: Present: normal capillary refill (Capillary refill less than 2 seconds, DP pulse 2+ in lower extremities and equal bilaterally), other (Sensation intact throughout bilateral lower extremities). Absent: calf tenderness (No edema noted of the bilateral lower extremities) Back exam: Present: vertebral tenderness (minimal lumbar and paraspinal lumbar tenderness ). Absent: full ROM (patient has flexion to 45 before expressing pain. Patient does not have any pain with twisting.), CVA tenderness (R), CVA tenderness (L) Neurological exam: Present: alert, oriented X3, CN II-XII intact Course Vital Signs 09/28/18 22:48 Temperature 97.8 F Pulse Rate 67 Respiratory 16 Rate Blood Pressure 141/91 O2 Sat by Pulse 97 Oximetry Medical Decision Making - Medical Decision Making 43-year-old male presents to the emergency department for a chief complaint of low back pain after trying to lift a lawnmower. Patient states it is spasming and cramping low back pain. No saddle anesthesia. No bladder or bowel changes. No weakness of the lower extremity. No history of IV drug abuse. No fevers or chills. Neurovascular status intact in the lower extremities bilaterally and exam. He has minimal generalized lumbar tenderness. X-ray of the lumbar spine is normal. Patient was given Toradol, feeling much better at this time, requesting discharge. Patient will follow up with primary care or orthopedics. He'll return here if he has any worsening symptoms. Disposition Clinical Impression: Mechanical back pain Disposition: HOME SELF-CARE Condition: Good Instructions (If sedation given, give patient instructions): Acute Low Back Pain (ED) Additional Instructions: Please take Motrin for pain. Take Flexeril for muscle relaxer however do not drive or operate machinery when taking this. Please follow-up with primary care in 1-2 days or return if you have any worsening symptoms. Prescriptions: Cyclobenzaprine [Flexeril] 10 mg PO TID #10 tab Ibuprofen [Motrin] 600 mg PO Q8HR PRN #20 tab PRN Reason: Pain Is patient prescribed a controlled substance at d/c from ED?: No Referrals: Angel Vaughn MD [REFERRING] - 1-2 days Fede Rutherford DO [Doctor of Osteopathic Medicine] - 1-2 days Time of Disposition: 00:17
[2018-09-29 00:46] VITALS: BP 137/80; PULSE 82; RESP 18; TEMP 97.9
== END 2018-09-29 00:46 | disposition home or self-care (01) ==
LOC: EC 22:43
DX: M54.5 Low back pain (principal)
CPT/HCPCS: 72100; 99283; 96372 ×2; J2930; J1885

== ENCOUNTER 2018-10-04 13:17 | Emergency (ER) | payer MEDICARE, OTHER ==
[2018-10-04 13:21] VITALS: RESP 18
[2018-10-04] MEDS ORDERED: ORPHENADRINE 30 MG/ML 2 ML VIAL IM STA (13:55)
[2018-10-04] MEDS ORDERED: methylPREDNISolone SOD SUCCI 125 MG/2 ML VIAL IM ONE (13:56)
--- NOTE | 2018-10-04 13:59 | ED ---
General Adult HPI - General Chief complaint: Back Pain/Injury Stated complaint: Back pain Time Seen by Provider: 10/04/18 13:20 Source: patient, RN notes reviewed Mode of arrival: ambulatory Limitations: no limitations - History of Present Illness Initial comments: This is a 43-year-old male who presents emergency Department complaining of back pain. Patient states about a month and a half ago he lifted a lawnmower and hurt his back and he was in the emergency department at that time. Patient states he had Motrin and some Flexeril and that seemed to help but the pain never completely went away. Patient states he got this morning after sleeping on a couch which she normally does not do and he was having a hard time bending down even to put her shoes on. Patient states when he bends down to heart he does have some pain in the back of his thighs and into his groin a little. Patient denies any numbness or weakness. Patient denies any urinary incontinence or urinary retention. Patient states stable to ambulate without problem. Patient states the pain occurs it feels like a spasm. Patient states since the initial injury he has never had any injury since. Patient was directed to follow up with orthopedics he states he never has. Patient states he is out of his Flexeril. - Related Data Previous Rx's Medication Instructions Recorded Cyclobenzaprine [Flexeril] 10 mg PO TID #10 tab 09/29/18 Ibuprofen [Motrin] 600 mg PO Q8HR PRN #20 tab 09/29/18 Cyclobenzaprine [Flexeril] 10 mg PO TID #20 tab 10/04/18 predniSONE 40 mg PO DAILY #8 tab 10/04/18 Allergies Allergy/AdvReac Type Severity Reaction Status Date / Time No Known Allergies Allergy Verified 10/04/18 13:21 Review of Systems ROS Statement: Those systems with pertinent positive or pertinent negative responses have been documented in the HPI. ROS Other: All systems not noted in ROS Statement are negative. Past Medical History Past Medical History: Hypertension Additional Past Medical History / Comment(s): back pain History of Any Multi-Drug Resistant Organisms: None Reported Past Surgical History: No Surgical Hx Reported Past Anesthesia/Blood Transfusion Reactions: No Reported Reaction Past Psychological History: No Psychological Hx Reported Smoking Status: Never smoker Past Alcohol Use History: None Reported Past Drug Use History: None Reported - Past Family History Mother Family Medical History: Coronary Artery Disease (CAD) Father Family Medical History: Diabetes Mellitus General Exam - General Exam Comments Initial Comments: GENERAL: Patient is well-developed and well-nourished. Patient is nontoxic and well- hydrated and is in mild distress. ENT: Neck has full range of motion without eliciting any pain. EYES: The sclera were anicteric and conjunctiva were pink and moist. Extraocular movements were intact and pupils were equal round and reactive to light. Eyelids were unremarkable. PULMONARY: Unlabored respirations. Good breath sounds bilaterally. No audible rales rhonchi or wheezing was noted. CARDIOVASCULAR: There is a regular rate and rhythm without any murmurs gallops or rubs. ABDOMEN: Soft and nontender with normal bowel sounds. No palpable organomegaly was noted. There is no palpable pulsatile mass. SKIN: Skin is clear with no lesions or rashes and otherwise unremarkable. NEUROLOGIC: Patient is alert and oriented x3. Cranial nerves II through XII are grossly intact. Motor and sensory are also intact. Normal speech, volume and content. Symmetrical smile. Straight leg test is normal bilaterally to 60. Patient has no perineum numbness. MUSCULOSKELETAL: Normal extremities with adequate strength and full range of motion. No lower extremity swelling or edema. No calf tenderness. PSYCHIATRIC: Normal psychiatric evaluation. Limitations: no limitations Course Vital Signs 10/04/18 13:20 Temperature 97.7 F Pulse Rate 75 Respiratory 18 Rate Blood Pressure 140/85 O2 Sat by Pulse 98 Oximetry Disposition Clinical Impression: Sciatica Disposition: HOME SELF-CARE Condition: Good Additional Instructions: After patient is taking his prednisone he can start Motrin 600 mg every 6 hours on the following day Prescriptions: Cyclobenzaprine [Flexeril] 10 mg PO TID #20 tab predniSONE 40 mg PO DAILY #8 tab Is patient prescribed a controlled substance at d/c from ED?: No Referrals: None,Stated [Primary Care Provider] - 1-2 days Time of Disposition: 13:58
[2018-10-04 14:26] VITALS: BP 137/82; PULSE 83; TEMP 98.1
== END 2018-10-04 14:17 | disposition home or self-care (01) ==
LOC: EC 13:17
DX: M54.30 Sciatica, unspecified side (principal)
CPT/HCPCS: 99283; 96372 ×2; J2360; J2930

== ENCOUNTER 2019-01-25 11:02 | Emergency (ER) | payer MEDICARE, OTHER ==
[2019-01-25] MEDS ORDERED: ASPIRIN 81 MG PO STA (11:56)
--- NOTE | 2019-01-25 11:58 | ED ---
General Adult HPI - General Chief complaint: Chest Pain Stated complaint: CHEST PAIN Time Seen by Provider: 01/25/19 11:39 Source: patient, RN notes reviewed Mode of arrival: ambulatory Limitations: no limitations - History of Present Illness Initial comments: 43-year-old male with a past medical history of hypertension presents to the emergency department for a chief complaint of chest pain. Patient states this started about 2 days ago. Describes the chest pain as an intermittent sharp chest pain that starts on the right side of the chest and radiates down into his upper abdomen. States that movement and breathing makes the pain worse. Denies nausea. Denies sweating or diaphoresis. Patient denies any dizziness. Patient denies any history of diabetes or hypercholesterolemia. Denies smoking history. Patient states his father did have an [place] but he was older than 65 at the time. Patient has no other complaints at this time including shortness of breath, chest pain, abdominal pain, nausea or vomiting, headache, or visual changes. - Related Data Home Medications Medication Instructions Recorded Confirmed No Known Home Medications 01/25/19 01/25/19 Allergies Allergy/AdvReac Type Severity Reaction Status Date / Time No Known Allergies Allergy Verified 01/25/19 11:33 Review of Systems ROS Statement: Those systems with pertinent positive or pertinent negative responses have been documented in the HPI. ROS Other: All systems not noted in ROS Statement are negative. Past Medical History Past Medical History: Hypertension Additional Past Medical History / Comment(s): back pain History of Any Multi-Drug Resistant Organisms: None Reported Past Surgical History: No Surgical Hx Reported Past Anesthesia/Blood Transfusion Reactions: No Reported Reaction Past Psychological History: No Psychological Hx Reported Smoking Status: Never smoker Past Alcohol Use History: None Reported Past Drug Use History: None Reported - Past Family History Mother Family Medical History: Coronary Artery Disease (CAD) Father Family Medical History: Diabetes Mellitus General Exam Limitations: no limitations General appearance: alert, in no apparent distress Head exam: Present: atraumatic, normocephalic, normal inspection Eye exam: Present: normal appearance, PERRL, EOMI. Absent: scleral icterus, conjunctival injection, periorbital swelling ENT exam: Present: normal exam, mucous membranes moist Neck exam: Present: normal inspection, full ROM. Absent: tenderness, meningismus, lymphadenopathy Respiratory exam: Present: normal lung sounds bilaterally, chest wall tenderness (Reproducible chest wall pain to palpation). Absent: respiratory distress, wheezes, rales, rhonchi, stridor Cardiovascular Exam: Present: regular rate, normal rhythm, normal heart sounds. Absent: systolic murmur, diastolic murmur, rubs, gallop, clicks GI/Abdominal exam: Present: soft, normal bowel sounds. Absent: distended, tenderness (Nontender abdomen), guarding, rebound, rigid Neurological exam: Present: alert Psychiatric exam: Present: normal affect, normal mood Course Vital Signs 01/25/19 01/25/19 01/25/19 11:07 11:21 11:30 Temperature 97.7 F Pulse Rate 72 66 70 Respiratory 18 18 5 L Rate Blood Pressure 134/76 126/81 O2 Sat by Pulse 98 95 Oximetry 01/25/19 01/25/19 01/25/19 12:00 12:30 13:00 Temperature Pulse Rate 67 66 Respiratory 15 18 Rate Blood Pressure 128/86 122/85 128/102 O2 Sat by Pulse 97 99 Oximetry 01/25/19 13:07 Temperature Pulse Rate 66 Respiratory 3 L Rate Blood Pressure 128/102 O2 Sat by Pulse 99 Oximetry EKG Findings - EKG Comments: EKG Findings:: EKG shows a normal sinus rhythm, ventricular rate 63, RI interval 144, QTC 409, no evidence of ST elevation or depression Medical Decision Making - Medical Decision Making 43-year-old male with a past medical history of hypertension presents to the emergency determine for a chief complaint of chest pain. This started about 2 days ago. She describes the pain as a sharp right-sided chest pain that radiates into his upper abdomen. Patient states it is intermittent and denies any chest pain throughout his entire ER stay. Patient states pain worsens when he twists. Denies any back pain. Exam is unremarkable. EKG shows a normal sinus rhythm without any ST elevation or depression. Pain is reproducible on exam with palpation. No abdominal tenderness whatsoever. CBC CMP unremarkable. Troponin is negative. Chest x-ray negative. Patient has a heart score of 2 making him low risk. At this time is chest pain is reproducible and atypical patient will be discharged home with chest wall pain diagnosis. However recommended following up with primary care and return if he has any worsening symptoms. - Lab Data Result diagrams: 01/25/19 12:15 01/25/19 12:15 Lab Results 01/25/19 01/25/19 01/25/19 Range/Units 12:15 12:15 12:15 WBC 7.5 (3.8-10.6) k/uL RBC 5.56 (4.30-5.90) m/uL Hgb 17.2 (13.0-17.5) gm/dL Hct 49.5 (39.0-53.0) % MCV 89.0 (80.0-100.0) fL MCH 30.9 (25.0-35.0) pg MCHC 34.7 (31.0-37.0) g/dL RDW 14.4 (11.5-15.5) % Plt Count 211 (150-450) k/uL Neutrophils % 63 % Lymphocytes % 28 % Monocytes % 6 % Eosinophils % 2 % Basophils % 1 % Neutrophils # 4.7 (1.3-7.7) k/uL Lymphocytes # 2.1 (1.0-4.8) k/uL Monocytes # 0.4 (0-1.0) k/uL Eosinophils # 0.2 (0-0.7) k/uL Basophils # 0.0 (0-0.2) k/uL PT 10.5 (9.0-12.0) sec INR 1.0 (<1.2) APTT 23.3 (22.0-30.0) sec D-Dimer 0.37 (<0.60) mg/L FEU Sodium 138 (137-145) mmol/L Potassium 4.2 (3.5-5.1) mmol/L Chloride 103 (98-107) mmol/L Carbon Dioxide 26 (22-30) mmol/L Anion Gap 9 mmol/L BUN 6 L (9-20) mg/dL Creatinine 0.88 (0.66-1.25) mg/dL Est GFR (CKD-EPI)AfAm >90 (>60 ml/min/1.73 sqM) Est GFR (CKD-EPI)NonAf >90 (>60 ml/min/1.73 sqM) Glucose 107 H (74-99) mg/dL Calcium 8.9 (8.4-10.2) mg/dL Magnesium 2.0 (1.6-2.3) mg/dL Total Bilirubin 0.8 (0.2-1.3) mg/dL AST 42 (17-59) U/L ALT 76 H (21-72) U/L Alkaline Phosphatase 53 (38-126) U/L Troponin I (0.000-0.034) ng/mL Total Protein 5.6 L (6.3-8.2) g/dL Albumin 3.3 L (3.5-5.0) g/dL Amylase 36 (30-110) U/L Lipase 52 (23-300) U/L Urine Color Urine Appearance (Clear) Urine pH (5.0-8.0) Ur Specific [place] (1.001-1.035) Urine Protein (Negative) Urine Glucose (UA) (Negative) Urine Ketones (Negative) Urine Blood (Negative) Urine Nitrite (Negative) Urine Bilirubin (Negative) Urine Urobilinogen (<2.0) mg/dL Ur Leukocyte Esterase (Negative) 01/25/19 01/25/19 Range/Units 12:15 12:20 WBC (3.8-10.6) k/uL RBC (4.30-5.90) m/uL Hgb (13.0-17.5) gm/dL Hct (39.0-53.0) % MCV (80.0-100.0) fL MCH (25.0-35.0) pg MCHC (31.0-37.0) g/dL RDW (11.5-15.5) % Plt Count (150-450) k/uL Neutrophils % % Lymphocytes % % Monocytes % % Eosinophils % % Basophils % % Neutrophils # (1.3-7.7) k/uL Lymphocytes # (1.0-4.8) k/uL Monocytes # (0-1.0) k/uL Eosinophils # (0-0.7) k/uL Basophils # (0-0.2) k/uL PT (9.0-12.0) sec INR (<1.2) APTT (22.0-30.0) sec D-Dimer (<0.60) mg/L FEU Sodium (137-145) mmol/L Potassium (3.5-5.1) mmol/L Chloride (98-107) mmol/L Carbon Dioxide (22-30) mmol/L Anion Gap mmol/L BUN (9-20) mg/dL Creatinine (0.66-1.25) mg/dL Est GFR (CKD-EPI)AfAm (>60 ml/min/1.73 sqM) Est GFR (CKD-EPI)NonAf (>60 ml/min/1.73 sqM) Glucose (74-99) mg/dL Calcium (8.4-10.2) mg/dL Magnesium (1.6-2.3) mg/dL Total Bilirubin (0.2-1.3) mg/dL AST (17-59) U/L ALT (21-72) U/L Alkaline Phosphatase (38-126) U/L Troponin I <0.012 (0.000-0.034) ng/mL Total Protein (6.3-8.2) g/dL Albumin (3.5-5.0) g/dL Amylase (30-110) U/L Lipase (23-300) U/L Urine Color Light Yellow Urine Appearance Clear (Clear) Urine pH 5.0 (5.0-8.0) Ur Specific [place] 1.005 (1.001-1.035) Urine Protein Negative (Negative) Urine Glucose (UA) Negative (Negative) Urine Ketones Negative (Negative) Urine Blood Negative (Negative) Urine Nitrite Negative (Negative) Urine Bilirubin Negative (Negative) Urine Urobilinogen <2.0 (<2.0) mg/dL Ur Leukocyte Esterase Negative (Negative) Disposition Clinical Impression: Chest wall pain, Atypical chest pain Disposition: HOME SELF-CARE Condition: Good Instructions (If sedation given, give patient instructions): Chest Pain (ED), Costochondritis (ED) Additional Instructions: Please follow up with primary care in 1-2 days. Please return to the emergency department if you have any worsening symptoms. Is patient prescribed a controlled substance at d/c from ED?: No Referrals: Keith Mata MD [Primary Care Provider] - 1-2 days Time of Disposition: 14:03
[2019-01-25 12:41] LABS: Basophils % (A) 1 %; Eosinophils # (A) 0.2 k/uL (0-0.7); Eosinophils % (A) 2 %; HCT 49.5 % (39.0-53.0); HGB 17.2 gm/dL (13.0-17.5); Lymphocytes # (A) 2.1 k/uL (1.0-4.8); Lymphocytes % (A) 28 %; MCH 30.9 pg (25.0-35.0); MCHC 34.7 g/dL (31.0-37.0); Mean Platelet Volume 7.9; Monocytes # (A) 0.4 k/uL (0-1.0); Monocytes % (A) 6 %; Neutrophils # (A) 4.7 k/uL (1.3-7.7); Neutrophils % (A) 63 %; Platelet Count 211 k/uL (150-450); RBC 5.56 m/uL (4.30-5.90); RDW 14.4 % (11.5-15.5); WBC 7.5 k/uL (3.8-10.6)
[2019-01-25 12:41] LABS: Appearance,Urine Clear (Clear); Bilirubin,Urine Negative (Negative); Blood,Urine Negative (Negative); Color,Urine Light Yellow; Glucose,Urine (UA) Negative (Negative); Ketones,Urine Negative (Negative); Leukocyte Esterase,Urine Negative (Negative); Nitrite,Urine Negative (Negative); Protein,Urine Negative (Negative); Specific Gravity,Urine 1.005 (1.001-1.035); Urobilinogen,Urine <2.0 mg/dL (<2.0)
[2019-01-25 12:44] LABS: ALT 76 U/L (21-72); AST 42 U/L (17-59); African American GFR (CKD) >90 (>60 ml/min/1.73 sqM); Albumin 3.3 g/dL (3.5-5.0); Alkaline Phosphatase 53 U/L (38-126); Amylase 36 U/L (30-110); Anion Gap 9 mmol/L; Blood Urea Nitrogen 6 mg/dL (9-20); Calcium 8.9 mg/dL (8.4-10.2); Carbon Dioxide 26 mmol/L (22-30); Chloride 103 mmol/L (98-107); Glucose 107 mg/dL (74-99); Potassium 4.2 mmol/L (3.5-5.1); Sodium 138 mmol/L (137-145); Total Bilirubin 0.8 mg/dL (0.2-1.3); Total Protein 5.6 g/dL (6.3-8.2)
[2019-01-25 12:51] LABS: D-Dimer 0.37 mg/L FEU (<0.60); Partial Thromboplastin Time 23.3 sec (22.0-30.0); Prothrombin Time 10.5 sec (9.0-12.0)
--- NOTE | 2019-01-25 13:10 | XR ---
EXAMINATION TYPE: XR chest 2V DATE OF EXAM: 01/25/2019 COMPARISON: 02/14/2017 INDICATION: Chest pain TECHNIQUE: Frontal and lateral views of the chest are obtained. FINDINGS: The heart size is normal. The pulmonary vasculature is normal. The lungs are clear. IMPRESSION: 1. No acute pulmonary process.
[2019-01-25 15:17] VITALS: BP 132/81; PULSE 68; RESP 16; TEMP 98.1
== END 2019-01-25 15:15 | disposition home or self-care (01) ==
LOC: EC 11:02
DX: R07.89 Other chest pain (principal); R10.10 Upper abdominal pain, unspecified; Z86.79 Personal history of other diseases of the circulatory system; Z82.49 Family history of ischemic heart disease and other diseases of the circulatory system
CPT/HCPCS: 36415; 71046; 80053; 81003; 82150; 83690; 83735; 84484; 85025; 85379; 85610; 85730; 99285

== ENCOUNTER 2020-10-12 10:33 | Emergency (ER) | payer MEDICARE, OTHER ==
[2020-10-12 10:59] VITALS: RESP 18
--- NOTE | 2020-10-12 11:23 | ED ---
General Adult HPI - General Source: patient, RN notes reviewed Mode of arrival: ambulatory Limitations: no limitations <Dustin Zimmerman - Last Filed: 10/12/20 12:02> <Shirley Allen - Last Filed: 10/21/20 16:58> - General Chief complaint: Skin/Abscess/Foreign Body Stated complaint: Injury on L hand finger Time Seen by Provider: 10/12/20 11:00 - History of Present Illness Initial comments: 45-year-old male presents emergency apartment chief complaint of possible foreign bite to his left hand third digit. Patient states that he is "Y her several weeks ago states that he felt like he removed it but states he is concerned. He also has a wart area. Patient's second complaint is he has redness, painful bumps on the scalp. Patient states his started recently. States is a large lump behind it. No fevers or chills no other complaints. (Dustin Zimmerman) - Related Data Previous Rx's Medication Instructions Recorded Cephalexin [Keflex] 500 mg PO Q6HR #28 cap 10/12/20 Allergies Allergy/AdvReac Type Severity Reaction Status Date / Time No Known Allergies Allergy Verified 10/12/20 10:59 Review of Systems ROS Other: All systems not noted in ROS Statement are negative. <Dustin Zimmerman - Last Filed: 10/12/20 12:02> ROS Other: All systems not noted in ROS Statement are negative. <Shirley Allen - Last Filed: 10/21/20 16:58> ROS Statement: Those systems with pertinent positive or pertinent negative responses have been documented in the HPI. Past Medical History Past Medical History: Hypertension Additional Past Medical History / Comment(s): back pain History of Any Multi-Drug Resistant Organisms: None Reported Past Surgical History: No Surgical Hx Reported Past Anesthesia/Blood Transfusion Reactions: No Reported Reaction Past Psychological History: No Psychological Hx Reported Smoking Status: Never smoker Past Alcohol Use History: None Reported Past Drug Use History: None Reported - Past Family History Mother Family Medical History: Coronary Artery Disease (CAD) Father Family Medical History: Diabetes Mellitus <Dustin Zimmerman - Last Filed: 10/12/20 12:02> General Exam Limitations: no limitations General appearance: alert, in no apparent distress Head exam: Present: atraumatic, normocephalic. Absent: normal inspection (Small erythematous areas on the hair follicles, palpable lymph node posterior aspect left) Eye exam: Present: normal appearance, PERRL, EOMI. Absent: scleral icterus, conjunctival injection, periorbital swelling ENT exam: Present: normal exam, normal oropharynx, mucous membranes moist Neck exam: Present: normal inspection, full ROM. Absent: tenderness, meningismus, lymphadenopathy Respiratory exam: Present: normal lung sounds bilaterally. Absent: respiratory distress, wheezes, rales, rhonchi, stridor Cardiovascular Exam: Present: regular rate, normal rhythm, normal heart sounds. Absent: systolic murmur, diastolic murmur, rubs, gallop, clicks Extremities exam: Present: other (Left hand third digit there is a rough slightly raised rash approximately 3 mm in diameter) <Dustin Zimmerman - Last Filed: 10/12/20 12:02> Course Vital Signs 10/12/20 10/12/20 10:55 12:14 Temperature 98.1 F 98.2 F Pulse Rate 74 72 Respiratory 18 18 Rate Blood Pressure 145/86 142/82 O2 Sat by Pulse 99 Oximetry Medical Decision Making <Dustin Zimmerman - Last Filed: 10/12/20 12:02> <Shirley Allen - Last Filed: 10/21/20 16:58> - Medical Decision Making X-rays negative for foreign body. Patient clinically has plantar's wart will continue treatment patient does have some evidence of folliculitis of the scalp advised to use bar antibacterial soap and will be started on in short course of antibiotics. (Dustin Zimmerman) I was available for consultation in the emergency department. The history and physical exam were done by the midlevel provider. I was consulted for this patients care. I reviewed the case with the midlevel provider and based on their presentation of the patient, I agree with the assessment, medical decision making and plan of care as documented. Chart was dictated using [employer] dictation software. Attempts were made to correct any dictation errors however some typographical errors may persist. Patient was seen during a national state of emergency due to the Covid-19 pandemic. (Shirley Allen) Disposition Is patient prescribed a controlled substance at d/c from ED?: No Time of Disposition: 12:04 <Dustin Zimmerman - Last Filed: 10/12/20 12:02> <Shirley Allen - Last Filed: 10/21/20 16:58> Clinical Impression: Folliculitis, Viral wart on finger Disposition: HOME SELF-CARE Condition: Stable Instructions (If sedation given, give patient instructions): Common Wart (ED) Additional Instructions: Please return to the Emergency Department if symptoms worsen or any other concerns. Prescriptions: Cephalexin [Keflex] 500 mg PO Q6HR #28 cap Referrals: None,Stated [Primary Care Provider] - 1-2 days
--- NOTE | 2020-10-12 11:56 | XR ---
EXAMINATION TYPE: XR finger LT DATE OF EXAM: 10/12/2020 COMPARISON: NONE HISTORY: Pain possible foreign body TECHNIQUE: Three views are submitted. FINDINGS: The osseous structures are intact. The joint spaces are preserved and there is no acute fracture or dislocation. No metallic foreign body identified. IMPRESSION: 1. No definite acute fracture or dislocation if symptoms persist, follow-up study in 7 to 10 days wo uld be suggested
[2020-10-12 12:16] VITALS: BP 142/82; PULSE 72; TEMP 98.2
== END 2020-10-12 12:14 | disposition home or self-care (01) ==
LOC: EC 10:33
DX: L73.9 Follicular disorder, unspecified (principal); B07.0 Plantar wart; I10 Essential (primary) hypertension
CPT/HCPCS: 99283

== ENCOUNTER 2021-07-08 21:29 | Emergency (ER) | payer MEDICARE, OTHER ==
[2021-07-08 21:34] VITALS: RESP 18
[2021-07-08 22:10] LABS: Appearance,Urine Clear (Clear); Bilirubin,Urine Negative (Negative); Blood,Urine Negative (Negative); Color,Urine Yellow; Glucose,Urine (UA) Negative (Negative); Ketones,Urine Negative (Negative); Leukocyte Esterase,Urine Negative (Negative); Nitrite,Urine Negative (Negative); PH, Urine 5.5 (5.0-8.0); Protein,Urine Trace (Negative); Specific Gravity,Urine 1.028 (1.001-1.035)
[2021-07-09] MEDS ORDERED: KETOROLAC 15 MG/ML 1 ML VIAL IM STA (00:18)
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
--- NOTE | 2021-07-09 00:36 | US ---
EXAMINATION TYPE: US scrotum with doppler. Grayscale and color Doppler Duplex imaging performed of hermelinda pina scrotum. DATE OF EXAM: 07/08/2021 COMPARISON: NONE CLINICAL HISTORY: Scrotal trauma 2 days ago. EXAM MEASUREMENTS: TESTICLES: Right Testicle: 4.6 x 3.4 x 4.6 cm Left Testicle: 5.4 x 3.5 x 3.8 cm EPIDIDYMIS HEAD: Right Epididymis: 1.3 cm Left Epididymis: 1.7 cm Doppler performed to assess for testicular vascularity; good bilateral color flow and waveforms are s een. There is no evidence of testicular torsion. Presence of hydroceles: right 3.5cm, left 2.5cm Presence of varicoceles: no IMPRESSION: There are bilateral hydroceles. No testicular torsion or mass.
[2021-07-09 01:11] VITALS: BP 138/70; PULSE 68; TEMP 98
== END 2021-07-09 01:10 | disposition home or self-care (01) ==
LOC: EC 21:29
DX: S39.94XA Unspecified injury of external genitals, initial encounter (principal); N43.3 Hydrocele, unspecified; I10 Essential (primary) hypertension; W21.00XD Struck by hit or thrown ball, unspecified type, subsequent encounter
CPT/HCPCS: 81003; 93975; 76870; 99284; 96372; J1885

== ENCOUNTER 2021-10-07 15:45 | Emergency (ER) | payer MEDICARE, OTHER ==
[2021-10-07 15:49] VITALS: RESP 20; TEMP 97.8
[2021-10-07] MEDS ORDERED: DIPH,PERTUS(ACELL)TETVAC-LF 0.5 ML VIAL IM ONE (16:46)
[2021-10-07] MEDS ORDERED: CEPHALEXIN 500 MG CAP PO STA (16:46)
--- NOTE | 2021-10-07 16:51 | ED ---
Wound/Laceration HPI - General Chief Complaint: Wound/Laceration Stated Complaint: sliver in finger Time Seen by Provider: 10/07/21 16:42 Source: patient, RN notes reviewed Mode of arrival: ambulatory Limitations: no limitations - History of Present Illness Initial Comments: Patient presents in respiratory breath left index finger discomfort and redness. Patient states he had a thorn go through his glove and into his finger yesterday. Patient attempted to get this particle out with fingernail clippers. Patient states he believes that part of the thorn is left in the finger. He is now complaining of redness, increased pain. Patient denying any fever or chills. No pain proximally. Abnormality overlying the distal phalanx of left i ndex finger. Does not involve the joints. Remainder of the hand is unaffected. Patient has full range of motion No headache, no fever or chills, no changes in vision or hearing, no sore throat or difficulty with speech, no neck pain, no chest pain or shortness of breath, no abdominal pain, no nausea or vomiting, no changes in urination or bowel movements, no numbness or tingling, n no skin rashes or lesions. - Related Data Previous Rx's Medication Instructions Recorded Cephalexin [Keflex] 500 mg PO Q6HR #28 cap 10/12/20 Cephalexin [Keflex] 500 mg PO Q6HR #40 cap 10/07/21 Allergies Allergy/AdvReac Type Severity Reaction Status Date / Time No Known Allergies Allergy Verified 10/07/21 15:48 Review of Systems ROS Statement: Those systems with pertinent positive or pertinent negative responses have been documented in the HPI. ROS Other: All systems not noted in ROS Statement are negative. Past Medical History Past Medical History: Hypertension Additional Past Medical History / Comment(s): back pain History of Any Multi-Drug Resistant Organisms: None Reported Past Surgical History: No Surgical Hx Reported Past Anesthesia/Blood Transfusion Reactions: No Reported Reaction Past Psychological History: No Psychological Hx Reported Smoking Status: Never smoker Past Alcohol Use History: None Reported Past Drug Use History: None Reported - Past Family History Mother Family Medical History: Coronary Artery Disease (CAD) Father Family Medical History: Diabetes Mellitus General Exam Limitations: no limitations General appearance: alert, in no apparent distress Head exam: Present: atraumatic, normocephalic, normal inspection Eye exam: Present: normal appearance, PERRL, EOMI. Absent: scleral icterus, conjunctival injection, periorbital swelling ENT exam: Present: normal exam, mucous membranes moist Neck exam: Present: normal inspection, full ROM. Absent: tenderness, meningismus, lymphadenopathy Respiratory exam: Present: normal lung sounds bilaterally. Absent: respiratory distress, wheezes, rales, rhonchi, stridor Cardiovascular Exam: Present: regular rate, normal rhythm, normal heart sounds. Absent: systolic murmur, diastolic murmur, rubs, gallop, clicks GI/Abdominal exam: Present: soft, normal bowel sounds. Absent: distended, tenderness, guarding, rebound, rigid Extremities exam: Present: normal inspection, full ROM, tenderness, normal capillary refill, other (Patient has erythema with a small amount of swelling to the dorsum of the left index regular overlying the distal phalanx. There is a small eschar as well. No lymphangitis. Remainder of the hand is unaffected. All phalanges in all planes, full range of motion and wrist. No axillary adenopathy.). Absent: joint swelling Back exam: Present: normal inspection Neurological exam: Present: alert, oriented X3, CN II-XII intact Psychiatric exam: Present: normal affect, normal mood Skin exam: Present: warm, dry, other (Patient's area of erythema and mild edema located over the distal phalanx left index finger. Small eschar noted. No drainage. No evidence of overt foreign body capillary refill less than 2 seconds). Absent: rash Course Vital Signs 10/07/21 15:47 Temperature 97.8 F Pulse Rate 71 Respiratory 20 Rate Blood Pressure 146/78 O2 Sat by Pulse 99 Oximetry Medical Decision Making - Medical Decision Making Patient presents with cellulitis of left index finger, secondary to a foreign body which he removed yesterday with fingernail clippers. There is no overt or obvious foreign body on physical examination. Plain film x-rays ordered. Tetanus was updated. Cephalexin 500 mg given. We'll reevaluate after x-ray. Patient does not appear to be systemically ill. Patient was told to return to the ER for any signs or symptoms worsen. Told to return immediately if any other problems arise. All questions answered. Treatment plan discussed. Patient in agreement Every effort has been made to ensure accuracy of this dictation. However, due to the limitations of electronic medical records and dictation devices, errors in charting still occur. Oral antibiotics, warm compresses Consultation on signs and symptoms of worsening infection. Counseled patient wound care. [id number] acetaminophen and ibuprofen for pain control. Patient to follow-up with his regular physician for reevaluation. I will give orthopedics line installation supervisor for follow-up as well. Supervising physician is Dr. Blanchard. - Radiology Data Radiology results: report reviewed, image reviewed Disposition Clinical Impression: Cellulitis of left index finger Narrative: Possible retained foreign body/debris Disposition: HOME SELF-CARE Instructions (If sedation given, give patient instructions): Paronychia (ED), Cellulitis (ED) Additional Instructions: Warm compresses for 10-15 minutes at a time with warm soap and water, keep the area covered with antibiotic ointment as discussed. Follow up with the orthopedic physician. Follow-up with your regular physician as directed. Return to the ER immediately if any symptoms worsen, new symptoms arise, or any other problems develop. Prescriptions: Cephalexin [Keflex] 500 mg PO Q6HR #40 cap Is patient prescribed a controlled substance at d/c from ED?: No Referrals: Elaine Burroughs DO [Doctor of Osteopathic Medicine] - 10/10/21 Time of Disposition: 17:33
--- NOTE | 2021-10-07 17:18 | XR ---
EXAMINATION TYPE: XR finger LT DATE OF EXAM: 10/07/2021 COMPARISON: NONE HISTORY: Pain and swelling TECHNIQUE: 3 views FINDINGS: I see no fracture nor dislocation. Joint spaces are normal. No evidence of a foreign body. IMPRESSION: Negative left index finger exam.
[2021-10-07 17:56] VITALS: BP 152/60; PULSE 87
== END 2021-10-07 17:55 | disposition home or self-care (01) ==
LOC: EC 15:45
DX: L03.012 Cellulitis of left finger (principal); I10 Essential (primary) hypertension
CPT/HCPCS: 90471; 90715; 99283

== ENCOUNTER 2022-05-05 15:57 | Emergency (ER) | payer MEDICARE, OTHER ==
[2022-05-05 16:38] VITALS: BP 157/76; PULSE 79; RESP 20; TEMP 98.5
--- NOTE | 2022-05-05 17:29 | XR ---
EXAMINATION TYPE: XR knee complete RT DATE OF EXAM: 05/05/2022 COMPARISON: NONE HISTORY: Pain TECHNIQUE: 3 views FINDINGS: There is mild spurring on the anterior patella. No sign of joint effusion. There is no frac ture nor dislocation. Joint spaces are normal. IMPRESSION: Negative right knee exam. No fracture.
--- NOTE | 2022-05-05 17:31 | XR ---
EXAMINATION TYPE: XR foot limited LT DATE OF EXAM: 05/05/2022 COMPARISON: NONE HISTORY: Pain TECHNIQUE: 2 views FINDINGS: The metatarsals are intact. There is previous surgery at the base of the proximal phalanx o f the big toe. There is a 4 mm linear density at the medial aspect of the mid shaft of the first meta tarsal consistent with a small metallic foreign body. There is a second foreign body seen that appear s to be at the head of the third metatarsal. No evidence of fracture of the toes. The tarsal bones ar e intact. IMPRESSION: Medial soft tissue foreign body. There is also a tiny foreign body apparently at the plan tar aspect of the distal third metatarsal. No fracture seen.
[2022-05-05] MEDS ORDERED: KETOROLAC 15 MG/ML 1 ML VIAL IM STA (19:30)
--- NOTE | 2022-05-05 19:35 | ED ---
Lower Extremity Injury HPI - General Chief Complaint: Extremity Injury, Lower Stated Complaint: Leg Injury Time Seen by Provider: 05/05/22 19:02 Source: patient, RN notes reviewed, old records reviewed Mode of arrival: wheelchair Limitations: no limitations - History of Present Illness Initial Comments: Patient presents ambulatory with complaints of left ankle and right knee pain after trying to move a safe with his brother today. Patient states that the safe was on a amara and fell off to the side landing on his ankle and right knee. He does have some abrasions to his ankle. Is able to ambulate. He is concerned for fracture. MD Complaint: knee injury, foot injury -: hour(s) (4) Type of Injury: blunt Severity scale (1-10): 10 Context: direct blow - Related Data Previous Rx's Medication Instructions Recorded Cephalexin [Keflex] 500 mg PO Q6HR #28 cap 10/12/20 Cephalexin [Keflex] 500 mg PO Q6HR #40 cap 10/07/21 Allergies Allergy/AdvReac Type Severity Reaction Status Date / Time No Known Allergies Allergy Verified 05/05/22 16:38 Review of Systems ROS Statement: Those systems with pertinent positive or pertinent negative responses have been documented in the HPI. ROS Other: All systems not noted in ROS Statement are negative. Past Medical History Past Medical History: Hypertension Additional Past Medical History / Comment(s): back pain History of Any Multi-Drug Resistant Organisms: None Reported Past Surgical History: No Surgical Hx Reported Past Anesthesia/Blood Transfusion Reactions: No Reported Reaction Past Psychological History: No Psychological Hx Reported Smoking Status: Never smoker Past Alcohol Use History: None Reported Past Drug Use History: None Reported - Past Family History Mother Family Medical History: Coronary Artery Disease (CAD) Father Family Medical History: Diabetes Mellitus General Exam Limitations: no limitations General appearance: alert, in no apparent distress Head exam: Present: atraumatic Eye exam: Present: normal appearance. Absent: scleral icterus, conjunctival injection, periorbital swelling Respiratory exam: Absent: accessory muscle use Cardiovascular Exam: Present: regular rate Left Ankle exam: Present: full ROM, tenderness, abrasion. Absent: swelling, laceration, ecchymosis, deformity, crepitus, dislocation Foot/Toe exam: Present: full ROM. Absent: tenderness, swelling, laceration, ecchymosis, deformity, crepitus, dislocation, erythema Neurovascular tendon exam: Present: no vascular compromise. Absent: abnormal cap refill, extremity cold to touch, pallor, foot drop Gait: observed and limited by pain Right Knee exam: Present: full ROM, full knee extension. Absent: tenderness, swelling, abrasion, laceration, ecchymosis, deformity, crepitus, dislocation, erythema, effusion, pain/laxity with valgus, pain/laxity with varus Lower Leg exam: Present: full ROM. Absent: tenderness Ankle exam: Present: full ROM. Absent: tenderness Foot/Toe exam: Present: full ROM. Absent: tenderness Neurovascular tendon exam: Present: no vascular compromise. Absent: extremity cold to touch, pallor, foot drop Neurological exam: Present: alert, oriented X3, normal gait (Antalgic related to left ankle pain) Psychiatric exam: Present: normal affect, normal mood Skin exam: Present: warm, dry. Absent: cyanosis, diaphoretic, petechiae, pallor Course Vital Signs 05/05/22 16:36 Temperature 98.5 F Pulse Rate 79 Respiratory 20 Rate Blood Pressure 157/76 O2 Sat by Pulse 97 Oximetry Medical Decision Making - Medical Decision Making X-ray left foot interpreted by me show no evidence of fracture, radiologist interpretation no acute fracture seen however notes there is a tiny foreign body plantar aspect of the distal metatarsal. X-ray was performed with patient's socks and shoes on. There is no evidence of erythema, tenderness or swelling at the site. X-ray of the right knee interpreted by me shows no evidence of fracture or dislocation. Radiologist's interpretation negative right knee exam is no fracture. Patient was given a shot of Toradol for his discomfort. Directed to ice, rest and elevate and follow up with primary care doctor within the next week. Case discussed with Dr. Nieves Disposition Clinical Impression: Ankle pain, left, Knee pain, right Disposition: HOME SELF-CARE Condition: Good Instructions (If sedation given, give patient instructions): Foot Contusion (ED), Foot Sprain (ED), Knee Pain (ED) Additional Instructions: Rest, ice, elevate while at home. Tylenol or Motrin as needed for pain or discomfort. Follow-up with your primary care doctor within the next week for reevaluation. Return to the emergency room with any new or concerning symptoms. Is patient prescribed a controlled substance at d/c from ED?: No Referrals: None,Stated [Primary Care Provider] - 1-2 days Time of Disposition: 19:35
== END 2022-05-05 19:41 | disposition home or self-care (01) ==
LOC: EC 15:57
DX: M25.572 Pain in left ankle and joints of left foot (principal); M25.561 Pain in right knee; I10 Essential (primary) hypertension; W22.8XXA Striking against or struck by other objects, initial encounter
CPT/HCPCS: 99283; 96372; 73562; 73620; J1885; 96361; 96374; 96375; 99284

== ENCOUNTER 2023-07-27 14:09 | Emergency (ER) | payer MEDICARE, OTHER ==
[2023-07-27 14:43] VITALS: BP 154/80; PULSE 61; RESP 18; TEMP 98.4
--- NOTE | 2023-07-27 14:49 | ED ---
Recheck HPI - General Chief Complaint: Recheck/Abnormal Lab/Rx Stated Complaint: congestion Time Seen by Provider: 07/27/23 14:48 Source: patient, family, RN notes reviewed Mode of arrival: ambulatory Limitations: no limitations - History of Present Illness Initial Comments: Patient is a 48-year-old male presented to ER with a chief complaint of COVID e xposure. Patient states he was exposed to right shoulder. He reports he took 3 at home test 2 of which were positive and one was negative. Patient states he would like to be checked to make sure as he never had COVID before. Denies any current cough, congestion, shortness of breath, chest pain, abdominal pain, fevers, chills, night sweats. - Related Data Previous Rx's Medication Instructions Recorded Cephalexin [Keflex] 500 mg PO Q6HR #28 cap 10/12/20 Cephalexin [Keflex] 500 mg PO Q6HR #40 cap 10/07/21 Allergies Allergy/AdvReac Type Severity Reaction Status Date / Time No Known Allergies Allergy Verified 07/27/23 14:31 Review of Systems ROS Statement: Those systems with pertinent positive or pertinent negative responses have been documented in the HPI. ROS Other: All systems not noted in ROS Statement are negative. Past Medical History Past Medical History: Hypertension Additional Past Medical History / Comment(s): back pain History of Any Multi-Drug Resistant Organisms: None Reported Past Surgical History: No Surgical Hx Reported Past Anesthesia/Blood Transfusion Reactions: No Reported Reaction Past Psychological History: No Psychological Hx Reported Smoking Status: Never smoker Past Alcohol Use History: None Reported Past Drug Use History: None Reported - Past Family History Mother Family Medical History: Coronary Artery Disease (CAD) Father Family Medical History: Diabetes Mellitus General Exam Limitations: no limitations General appearance: alert, in no apparent distress Head exam: Present: atraumatic, normocephalic, normal inspection ENT exam: Present: normal exam, normal oropharynx, mucous membranes moist, TM's normal bilaterally Neck exam: Present: normal inspection. Absent: tenderness, meningismus, lymphadenopathy Respiratory exam: Present: normal lung sounds bilaterally. Absent: respiratory distress, wheezes, rales, rhonchi, stridor Cardiovascular Exam: Present: regular rate, normal rhythm, normal heart sounds. Absent: systolic murmur, diastolic murmur, rubs, gallop, clicks Neurological exam: Present: alert, oriented X3, CN II-XII intact Psychiatric exam: Present: normal affect, normal mood Skin exam: Present: warm, dry, intact, normal color. Absent: rash Course Vital Signs 07/27/23 14:29 Temperature 98.4 F Pulse Rate 61 Respiratory 18 Rate Blood Pressure 154/80 O2 Sat by Pulse 99 Oximetry Medical Decision Making - Medical Decision Making Was pt. sent in by a medical professional or institution (NATE Nina, GENERAL ENGINEERING TEACHER, urgent care, hospital, or snf...) When possible be specific @ -No Did you speak to anyone other than the patient for history (EMS, parent, family, police, friend...)? What history was obtained from this source @ -No Did you review nursing and triage notes (agree or disagree)? Why? @ -I reviewed and agree with nursing and triage notes Were old charts reviewed (outside hosp., previous admission, EMS record, old EKG, old radiological studies, urgent care reports/EKG's, snf records)? Report findings @ -No old charts were reviewed Differential Diagnosis (chest pain, altered mental status, abdominal pain women, abdominal pain men, vaginal bleeding, weakness, fever, dyspnea, syncope, headache, dizziness, GI bleed, back pain, seizure, CVA, palpatations, mental health, musculoskeletal)? @ -COVID, RSV, influenza, viral sinusitis, pneumonia this list is not meant to be all-inclusive EKG interpreted by me (3pts min.). @ -none X-rays interpreted by me (1pt min.). @ -None done CT interpreted by me (1pt min.). @ -None done U/S interpreted by me (1pt. min.). @ -None done What testing was considered but not performed or refused? (CT, X-rays, U/S, labs)? Why? @ -None What meds were considered but not given or refused? Why? @ -None Did you discuss the management of the patient with other professionals (professionals i.e. NATE Nina, GENERAL ENGINEERING TEACHER, lab, RT, psych nurse, social media marketing manager, metalizing machine operator automatic, teacher, fiscal officer, bottle caser)? Give summary @ -No Was smoking cessation discussed for >3mins.? @ -No Was critical care preformed (if so, how long)? @ -No Were there social determinants of health that impacted care today? How? (Homelessness, low income, unemployed, alcoholism, drug addiction, transportation, low edu. Level, literacy, decrease access to med. care, fci, rehab)? @ -No Was there de-escalation of care discussed even if they declined (Discuss DNR or withdrawal of care, Hospice)? DNR status @ -No What co-morbidities impacted this encounter? (DM, HTN, Smoking, COPD, CAD, Cancer, CVA, ARF, Chemo, Hep., AIDS, mental health diagnosis, sleep apnea, morbid obesity)? @ -None Was patient admitted / discharged? Hospital course, mention meds given and route, prescriptions, significant lab abnormalities, going to OR and other pertinent info. @ -Discharge. Patient is a 48-year-old male presenting to ER with chief complaint of COVID exposure. History and physical exam were completed. Vitals stable. Patient no signs of acute distress. Lung sounds clear to auscultation bilaterally. Nontoxic-appearing. COVID-positive. Influenza, RSV negative. Results discussed with patient, all questions answered. Return parameters discussed. Patient be discharged stable condition with follow-up to PCP. Patient expressed understanding and agreement with care plan. Undiagnosed new problem with uncertain prognosis? @ -No Drug Therapy requiring intensive monitoring for toxicity (Heparin, Nitro, Insulin, Cardizem)? @ -No Were any procedures done? @ -No Diagnosis/symptom? @ -COVID/viral sinusitis Acute, or Chronic, or Acute on Chronic? @ -Acute Uncomplicated (without systemic symptoms) or Complicated (systemic symptoms)? @ -Uncomplicated Side effects of treatment? @ -No Exacerbation, Progression, or Severe Exacerbation? @ -No Poses a threat to life or bodily function? How? (Chest pain, [place], [place], pneumonia, PE, COPD, DKA, ARF, appy, cholecystitis, CVA, Diverticulitis, Homicidal, Suicidal, threat to staff... and all critical care pts) @ -No - Lab Data Lab Results 07/27/23 Range/Units 14:51 Influenza Type A (PCR) Not Detected (Not Detectd) Influenza Type B (PCR) Not Detected (Not Detectd) RSV (PCR) Not Detected (Not Detectd) SARS-CoV-2 (PCR) Detected A (Not Detectd) Disposition Clinical Impression: COVID-19, Acute viral sinusitis Disposition: HOME SELF-CARE Condition: Stable Instructions (If sedation given, give patient instructions): COVID-19 (Coronavirus Disease 2019) (ED) Additional Instructions: Return to the ER for any new or worsening symptoms. Is patient prescribed a controlled substance at d/c from ED?: No Referrals: None,Stated [Primary Care Provider] - 1-2 days Time of Disposition: 15:34
== END 2023-07-27 16:01 | disposition home or self-care (01) ==
LOC: EC 14:09
DX: U07.1 COVID-19 (principal); J01.90 Acute sinusitis, unspecified; I10 Essential (primary) hypertension
CPT/HCPCS: 87636; 99283

== ENCOUNTER 2024-09-16 14:20 | Emergency (ER) | payer MEDICARE, OTHER ==
[2024-09-16 14:26] VITALS: RESP 16
--- NOTE | 2024-09-16 14:53 | ED ---
Head Injury HPI - General Chief complaint: Head Injury Stated complaint: head injury Time Seen by Provider: 09/16/24 14:26 Source: patient, RN notes reviewed Mode of arrival: ambulatory Limitations: no limitations - History of Present Illness Initial comments: This is a 49-year-old male who presents to the emergency department for a head injury. Patient states that 2 days ago he hit the left side of his head on a large tree. There was no loss of consciousness. Not taking any blood thinners. Denies any nausea/vomiting or visual changes. Patient states that he continues to have headaches, which concerns him. Not taking anything for pain control. MD Complaint: head injury - Related Data Home Medications Medication Instructions Recorded Confirmed No Known Home Medications 09/16/24 09/16/24 Allergies/Adverse reactions: Allergies Allergy/AdvReac Type Severity Reaction Status Date / Time No Known Allergies Allergy Verified 07/27/23 14:31 Review of Systems ROS Statement: Those systems with pertinent positive or pertinent negative responses have been documented in the HPI. ROS Other: All systems not noted in ROS Statement are negative. Past Medical History Past Medical History: Hypertension Additional Past Medical History / Comment(s): back pain History of Any Multi-Drug Resistant Organisms: None Reported Past Surgical History: No Surgical Hx Reported Past Anesthesia/Blood Transfusion Reactions: No Reported Reaction Past Psychological History: No Psychological Hx Reported Smoking Status: Never smoker Past Alcohol Use History: None Reported Past Drug Use History: None Reported - Past Family History Mother Family Medical History: Coronary Artery Disease (CAD) Father Family Medical History: Diabetes Mellitus General Exam Limitations: no limitations General appearance: alert, in no apparent distress Head exam: Present: atraumatic, normocephalic, normal inspection Eye exam: Present: normal appearance, PERRL, EOMI. Absent: scleral icterus, conjunctival injection, periorbital swelling Respiratory exam: Present: normal lung sounds bilaterally. Absent: respiratory distress, wheezes, rales, rhonchi, stridor Cardiovascular Exam: Present: regular rate, normal rhythm Neurological exam: Present: alert, oriented X3, CN II-XII intact Psychiatric exam: Present: normal affect, normal mood Skin exam: Present: warm, dry, intact, normal color. Absent: rash Course Vital Signs 09/16/24 14:23 Temperature 97.5 F L Pulse Rate 71 Respiratory 16 Rate Blood Pressure 150/95 O2 Sat by Pulse 98 Oximetry Medical Decision Making - Medical Decision Making This is a 49-year-old male who presents to the emergency department for a head injury. Was pt. sent in by a medical professional or institution? @ -No Did you speak to anyone other than the patient for history? @ -No Did you review nursing and triage notes? @ -Yes, and I agree, it is accurate with regards to the patient's symptoms. Were old charts reviewed? @ -No Differential Diagnosis? @ -Differential Diagnosis Head Injury: Contusion, hematoma, intracranial hemorrhage, skull fracture, whiplash, concussion, this is not meant to be an all-inclusive list. EKG interpreted by me (3pts min.)? @ -Not obtained X-rays interpreted by me (1pt min.)? @ -Not obtained CT interpreted by me (1pt min.)? @ -Computed tomography scan of the brain and c-spine obtained. My interpretation identifies no evidence of an acute intracranial hemorrhage, skull fracture, or cervical spine fracture. U/S interpreted by me (1pt. min.)? @ -Not obtained What testing was considered but not performed? (CT, X-rays, U/S, labs)? Why? @ -None What meds were considered but not given? Why? @ -None Did you discuss the management of the patient with other professionals? @ -No Did you reconcile home meds? @ -No Was smoking cessation discussed for >3mins.? @ -No Was critical care preformed (if so, how long)? @ -No Were there social determinants of health that impacted care today? How? (Homelessness, low income, unemployed, alcoholism, drug addiction, transportation, low edu. Level, literacy, decrease access to med. care, [facility], rehab)? @ -No Was there de-escalation of care discussed even if they declined? (Discuss DNR or withdrawal of care, Hospice)? @ -No What co-morbidities impacted this encounter? (DM, HTN, Smoking, COPD, CAD, Cancer, CVA, Hep., AIDS, mental health diagnosis, sleep apnea, morbid obesity)? @ -None Was patient admitted / discharged? @ -Discharged. CT scan of the brain and C-spine obtained revealing no acute process. Toradol and Tylenol administered for pain control. Advised ibuprofen and Tylenol as needed for pain relief. Patient discharged home in stable condition. Case discussed with ED attending Dr. Nixon. Return precautions reviewed in depth, the patient is instructed to return to the emergency department with any new, worsening, or concerning symptoms. Patient verbalized understanding. Undiagnosed new problem with uncertain prognosis? @ -None Drug Therapy requiring intensive monitoring for toxicity (Heparin, Nitro, Insulin, Cardizem)? @ -None Were any procedures done? @ -None Diagnosis/symptom? @ -Head injury Acute, or Chronic, or Acute on Chronic? @ -Acute Uncomplicated (without systemic symptoms) or Complicated (systemic symptoms)? @ -Uncomplicated Side effects of treatment? @ -None Exacerbation, Progression, or Severe Exacerbation] @ -Not applicable Poses a threat to life or bodily function? @ -No - Radiology Data Radiology results: report reviewed, image reviewed Disposition Clinical Impression: Closed head injury Disposition: HOME SELF-CARE Instructions (If sedation given, give patient instructions): Head Injury (ED) Additional Instructions: Return to the emergency department with any new, worsening, or concerning symptoms. Alternate with ibuprofen and Tylenol as needed for pain relief. Fol low up with your primary care provider in 1-2 days. Is patient prescribed a controlled substance at d/c from ED?: No Referrals: None,Stated [Primary Care Provider] - 1-2 days Time of Disposition: 15:10
--- NOTE | 2024-09-16 15:02 | CT ---
EXAMINATION TYPE: CT brain brandon wo con DATE OF EXAM: 09/16/2024 COMPARISON: None CLINICAL INDICATION: Male, 49 years old with history of Head injury; [facility], head injury x few days ago. c/o headache and pain on left side TECHNIQUE: CT scan of the head and cervical spine are performed without contrast. CT DLP: 1377.[address] CTDI: mGy Automated exposure control for dose reduction was used. Findings: Head CT: Ventricles, basal cisterns and sulci over convexities within normal limits and there is no mass, mass effect or shift of midline structures. There is mild decreased density in the periventricular white matter consistent with mild chronic isch emic white matter demyelination. There is no acute intra or extra-axial hemorrhage. Posterior fossa including the brainstem, fourth ventricle and cerebellar pontine angles are grossly n ormal. The intraorbital contents appear normal and symmetric. Visualized paranasal sinuses are well aerated. The calvarium is intact. CT cervical spine: Craniovertebral junction relationships and prevertebral soft tissues are normal. The cervical vertebral segments are normal in height and alignment and there is no fracture subluxati on. There is mild degenerative disc disease at the C6-7 level there is mild spondylosis and disc space na rrowing. The facet joints are intact. There is mild degeneration of the uncovertebral joints at C5-6. There is no bony encroachment of the cervical canal. There is mild bony encroachment at C5-6 on the r ight. The paraspinal soft tissues unremarkable. IMPRESSION: 1. Head CT: No acute bleed or mass effect. 2. CT cervical spine: No acute trauma. Mild degenerative changes at C5-6. [facility], , 09/16/2024 2:59 PM
[2024-09-16] MEDS: KETOROLAC 15 MG/ML 1 ML VIAL IM STA (15:10)
[2024-09-16] MEDS: ACETAMINOPHEN TAB 500 MG TAB PO STA (15:11)
[2024-09-16 15:20] VITALS: BP 145/86; PULSE 70; TEMP 97.7
== END 2024-09-16 15:20 | disposition home or self-care (01) ==
LOC: EC 14:20
DX: S09.90XA Unspecified injury of head, initial encounter (principal); W22.8XXA Striking against or struck by other objects, initial encounter
CPT/HCPCS: 72125; 70450; 99284; 96372; J1885

== ENCOUNTER 2024-11-26 16:27 | Emergency (ER) | payer MEDICARE, OTHER ==
[2024-11-26 16:56] VITALS: RESP 16
--- NOTE | 2024-11-26 17:02 | ED ---
Chest Pain HPI - General Source: patient Mode of arrival: ambulatory Limitations: no limitations <Reji Christensen - Last Filed: 11/26/24 17:01> - General Source: patient, RN notes reviewed Mode of arrival: ambulatory Limitations: no limitations - History of Present Illness MD Complaint: chest pain Onset/Timin -: hour(s) Onset: during rest Pain Location: left chest Pain Radiation: none Quality: sharp Consistency: now resolved Treatments Prior to Arrival: none <Tony Laughlin - Last Filed: 11/26/24 21:30> - General Chief Complaint: Chest Pain Stated Complaint: High bp Time Seen by Provider: 11/26/24 17:01 - History of Present Illness Initial Comments: 49-year-old male who was sent in by his dentist for elevated blood pressure. No known history of elevated blood pressure, he does not follow with a PCP. He was having some chest pain as well which has since resolved. No difficulty breathing. He does not take any antihypertensives. (Reji Christensen) - Related Data Allergies Allergy/AdvReac Type Severity Reaction Status Date / Time No Known Allergies Allergy Verified 07/27/23 14:31 Review of Systems ROS Other: All systems not noted in ROS Statement are negative. <Reji Christensen - Last Filed: 11/26/24 17:01> ROS Other: All systems not noted in ROS Statement are negative. <Tony Laughlin - Last Filed: 11/26/24 21:30> ROS Statement: Those systems with pertinent positive or pertinent negative responses have been documented in the HPI. Past Medical History Past Medical History: Hypertension Additional Past Medical History / Comment(s): back pain History of Any Multi-Drug Resistant Organisms: None Reported Past Surgical History: No Surgical Hx Reported Past Anesthesia/Blood Transfusion Reactions: No Reported Reaction Past Psychological History: No Psychological Hx Reported Smoking Status: Never smoker Past Alcohol Use History: None Reported Past Drug Use History: None Reported - Past Family History Mother Family Medical History: Coronary Artery Disease (CAD) Father Family Medical History: Diabetes Mellitus <Reji Christensen - Last Filed: 11/26/24 17:01> General Exam Limitations: no limitations <Reji Christensen - Last Filed: 11/26/24 17:01> General appearance: alert, in no apparent distress Head exam: Present: atraumatic, normocephalic, normal inspection Eye exam: Present: normal appearance, PERRL, EOMI. Absent: scleral icterus, conjunctival injection, periorbital swelling ENT exam: Present: normal exam, mucous membranes moist Neck exam: Present: normal inspection. Absent: tenderness, meningismus, lymphadenopathy Respiratory exam: Present: normal lung sounds bilaterally. Absent: respiratory distress, wheezes, rales, rhonchi, stridor, accessory muscle use, decreased breath sounds, prolonged expiratory Cardiovascular Exam: Present: regular rate, normal rhythm, normal heart sounds. Absent: systolic murmur, diastolic murmur, rubs, gallop, clicks GI/Abdominal exam: Present: soft, normal bowel sounds. Absent: distended, tenderness, guarding, rebound, rigid Extremities exam: Present: normal inspection, full ROM, normal capillary refill. Absent: tenderness, pedal edema, joint swelling, calf tenderness Back exam: Present: normal inspection Neurological exam: Present: alert, oriented X3, CN II-XII intact Psychiatric exam: Present: normal affect, normal mood Skin exam: Present: warm, dry, intact, normal color. Absent: rash <Tony Laughlin - Last Filed: 11/26/24 21:30> - General Exam Comments Initial Comments: Visual Physical Exam Vital signs reviewed General: Well-appearing, nontoxic, no acute distress. Head: Normocephalic, atraumatic Eyes: PERRLA, EOMI ENT: Airway patent Chest: Nonlabored breathing Skin: No visual rash, normal skin tone Neuro: Alert and oriented 3 Musculoskeletal: No gross abnormalities (Reji Christensen) Course Vital Signs 11/26/24 11/26/24 16:54 21:01 Temperature 97.8 F 98.0 F Pulse Rate 62 52 L Respiratory 16 16 Rate Blood Pressure 145/79 137/78 O2 Sat by Pulse 99 97 Oximetry Chest Pain MDM <Reji Christensen - Last Filed: 11/26/24 17:01> <Tony Laughlin - Last Filed: 11/26/24 21:30> - MDM I performed the quick note portion of this visit, electronically signed Reji Christensen PA-C (Reji Christensen) Was pt. sent in by a medical professional or institution (NATE Nina, OIL PIPE INSPECTOR, urgent care, hospital, or assisted...) When possible be specific @ -[No] Did you speak to anyone other than the patient for history (EMS, parent, family, police, friend...)? What history was obtained from this source @ -[No] Did you review nursing and triage notes (agree or disagree)? Why? @ -[I reviewed and agree with nursing and triage notes] Were old charts reviewed (outside hosp., previous admission, EMS record, old EKG, old radiological studies, urgent care reports/EKG's, assisted records)? Report findings @ -[No old charts were reviewed] Differential Diagnosis (chest pain, altered mental status, abdominal pain women, abdominal pain men, vaginal bleeding, weakness, fever, dyspnea, syncope, headache, dizziness, GI bleed, back pain, seizure, CVA, palpatations, mental health, musculoskeletal)? @ -Differential Chest Pain: Stable Angina, Unstable Angina, STEMI, NSTEMI Aortic Dissection, Pneumothorax, Musculoskeletal, Esophageal Spasm GERD, Cholecystitis, Pancreatitis, Zoster, this is not meant to be an all-inclusive list. EKG interpreted by me (3pts min.). @ -Sinus bradycardia with incomplete RBBB and LAD. No ST deviation or T wave inversion. Ventricular rate 57 bpm, HOMAR 177 ms, QRS duration 117 ms, QTc 361 ms. X-rays interpreted by me (1pt min.). @ -[None done] CT interpreted by me (1pt min.). @ -[None done] U/S interpreted by me (1pt. min.). @ -[None done] What testing was considered but not performed or refused? (CT, X-rays, U/S, labs)? Why? @ -[None] What meds were considered but not given or refused? Why? @ -[None] Did you discuss the management of the patient with other professionals (professionals i.e. , PA, OIL PIPE INSPECTOR, lab, RT, psych nurse, social work nurse, asset analyst, teacher, security officer supervisor, onsite case manager)? Give summary @ -[No] Was smoking cessation discussed for >3mins.? @ -[No] Was critical care preformed (if so, how long)? @ -[No] Were there social determinants of health that impacted care today? How? (Homelessness, low income, unemployed, alcoholism, drug addiction, transportation, low edu. Level, literacy, decrease access to med. care, care home, rehab)? @ -[No] Was there de-escalation of care discussed even if they declined (Discuss DNR or withdrawal of care, Hospice)? DNR status @ -[No] What co-morbidities impacted this encounter? (DM, HTN, Smoking, COPD, CAD, Cancer, CVA, ARF, Chemo, Hep., AIDS, mental health diagnosis, sleep apnea, morbid obesity)? @ -[None] Was patient admitted / discharged? Hospital course, mention meds given and route, prescriptions, significant lab abnormalities, going to OR and other pertinent info. @ -[hospital course] Undiagnosed new problem with uncertain prognosis? @ -[No] Drug Therapy requiring intensive monitoring for toxicity (Heparin, Nitro, Insulin, Cardizem)? @ -[No] Were any procedures done? @ -[No] Diagnosis/symptom? @ -Chest pain, hypertension Acute, or Chronic, or Acute on Chronic? @ -Acute Uncomplicated (without systemic symptoms) or Complicated (systemic symptoms)? @ -Uncomplicated Side effects of treatment? @ -[No] Exacerbation, Progression, or Severe Exacerbation? @ -[No] Poses a threat to life or bodily function? How? (Chest pain, [place], [place], pneumonia, PE, COPD, DKA, ARF, appy, cholecystitis, CVA, Diverticulitis, Homicidal, Suicidal, threat to staff... and all critical care pts) @ -[No] (Tony Laughlin) Disposition <Reji Christensen - Last Filed: 11/26/24 17:01> Is patient prescribed a controlled substance at d/c from ED?: No Time of Disposition: 21:30 <Tony Laughlin - Last Filed: 11/26/24 21:30> Clinical Impression: Elevated blood pressure reading without diagnosis of hypertension, Chest pain Disposition: HOME SELF-CARE Condition: Good Instructions (If sedation given, give patient instructions): Chest Pain (ED), Hypertension (ED) Additional Instructions: Follow-up with primary care physician for long-term management of health. Retu rn to ER if experiencing return of chest pain, difficulty breathing, dizziness, sweating. Referrals: None,Stated [Primary Care Provider] - 1-2 days Guy Del Castillo MD [STAFF PHYSICIAN] - 1-2 days Milo Diaz MD [STAFF PHYSICIAN] - 1-2 days
[2024-11-26 17:41] LABS: Basophils # (A) 0.04 10*3/uL (0.00-0.10); Basophils % (A) 0.7 %; Eosinophils # (A) 0.12 10*3/uL (0.04-0.35); HCT 42.3 % (39.6-50.0); Lymphocytes # (A) 1.84 10*3/uL (0.90-5.00); Lymphocytes % (A) 31.1 %; MCH 31.6 pg (27.0-32.0); MCHC 35.5 g/dL (32.0-37.0); MCV 89.1 fL (80.0-97.0); Mean Platelet Volume 10.3 fL (9.5-12.2); Monocytes # (A) 0.44 10*3/uL (0.20-1.00); Monocytes % (A) 7.4 %; Neutrophils # (A) 3.46 10*3/uL (1.80-7.70); Neutrophils % (A) 58.6 %; Platelet Count 211 10*3/uL (140-440); RBC 4.75 10*6/uL (4.40-5.60); WBC 5.91 10*3/uL (4.50-10.00)
[2024-11-26 17:50] LABS: Partial Thromboplastin Time 22.3 sec (22.0-30.0); Prothrombin Time 10.8 sec (10.0-12.5)
[2024-11-26 17:53] LABS: ALT 20 U/L (4-49); AST 22 U/L (17-59); African American GFR (CKD) >90 (>60 ml/min/1.73 sqM); Albumin 4.6 g/dL (3.5-5.0); Alkaline Phosphatase 60 U/L (38-126); Anion Gap 5 mmol/L; Blood Urea Nitrogen 16 mg/dL (9-20); Calcium 9.6 mg/dL (8.4-10.2); Carbon Dioxide 27 mmol/L (22-30); Chloride 104 mmol/L (98-107); Glucose 91 mg/dL (74-99); Magnesium 2.1 mg/dL (1.6-2.3); Non-African American GFR(CKD) >90 (>60 ml/min/1.73 sqM); Potassium 4.4 mmol/L (3.5-5.1); Sodium 136 mmol/L (137-145); Total Bilirubin 0.9 mg/dL (0.2-1.3); Total Protein 7.3 g/dL (6.3-8.2)
--- NOTE | 2024-11-26 18:58 | XR ---
EXAMINATION TYPE: XR chest 2V DATE OF EXAM: 11/26/2024 6:55 PM COMPARISON: Chest radiograph 01/25/2019. CLINICAL INDICATION: Male, 49 years old with history of Chest Pain; [facility]ATED [facility]IN [facility] TECHNIQUE: XR chest 2V Frontal and lateral views of the chest. FINDINGS: Lungs/Pleura: There is no evidence of pleural effusion, focal consolidation, or pneumothorax. Pulmonary vascularity: Unremarkable. Heart/mediastinum: Cardiomediastinal silhouette is unremarkable. Musculoskeletal: No acute osseous pathology. Other findings: None IMPRESSION: No acute cardiopulmonary disease/process. [facility], , 11/26/2024 6:55 PM
[2024-11-26 21:01] VITALS: BP 137/78; PULSE 52; TEMP 98
== END 2024-11-26 21:39 | disposition home or self-care (01) ==
LOC: EC 16:27
DX: I10 Essential (primary) hypertension (principal); R07.9 Chest pain, unspecified
CPT/HCPCS: 36415; 71046; 80053; 82465; 83735; 84484; 85025; 85610; 85730; 93005; 99285